=== PATIENT | female | born 1970 | race American Indian/Alaskan Native ===

== ENCOUNTER 2024-07-16 10:18 | Inpatient (IN) | payer MEDICARE, MEDICAID, SELFPAY ==
[2024-07-16] VITALS (9 sets, daily range): BP systolic 98–135; BP diastolic 60–78; PULSE 67–86; RESP 16–100; TEMP 36.7–36.9; O2SAT 98–100; BMI 21.2; BMI 24.1
--- NOTE | 2024-07-16 10:49 | XR_ITS ---
Examination: CT brain head without contrast. 2-D sagittal coronal reconstructions Date and time of exam:July 16, 2024 10:50 AM INDICATIONS: Headaches confusion today, dizziness right arm tremors April 26, 2024 CTDI: vol (mGy):47.4 DLP: (mGycm):977 Technique: Multiple CT axial sections of the brain have been obtained, 5 mm slice thickness. Contrast has not been administered. 2-D sagittal, coronal reconstructions have been obtained Low dose protocols were performed. One or more of the following dose reduction techniques were used; automated exposure control, adjustment of the mA and/or KV according to patient size, use of iterative reconstruction technique. Findings: No significant ventricular enlargement. Intra-axial or extra-axial hemorrhage density is not seen. No mass effect or midline shift Basal cisterns are not remarkable. Fourth ventricle is midline. Cranial vault intact. Impression: Negative for acute hemorrhage, mass effect or midline shift As clinically warranted, brain MRI follow-up would best assess for acute ischemic change
--- NOTE | 2024-07-16 10:49 | PD.EDRME ---
Rapid Medical Screening Exam RME Arrival date/time: 07/16/24 10:18 53-year-old female presents emergency department today complaints of generalized weakness and confusion Currently patient is GCS of 15 answers all questions appropriately Chief Complaint: Nausea/Vomiting/Diarrhea
--- NOTE | 2024-07-16 10:55 | EKG_ITS ---
[facility] Test Date: 2024-07-16 Pat Name: ALONDRA ORNELAS Department: Room: - Gender: [facility] Consultant: : 1970 Requested By: Jono Montalvo (ABISAI) Order Number: [id number] Reading MD: Jono Montalvo ([employer]) Measurements Intervals [place] Rate: 100 P: 23 CA: 160 QRS: -31 QRSD: 89 T: 46 QT: 360 QTc: 465 Interpretive Statements SINUS TACHYCARDIA WITH OCCASIONAL VENTRICULAR PREMATURE COMPLEXES MARKED LEFT AXIS DEVIATION [QRS AXIS < -30] PATTERN CONSISTENT WITH PULMONARY DISEASE Compared to ECG 04/26/2024 15:39:35 Ventricular premature complex(es) now present Sinus rhythm no longer present Myocardial infarct finding no longer present /store/S0/[id number]/[id number].pdf
[2024-07-16 11:31] LABS: Base Excess, Venous -6 (-3-3); O2 Saturation, Venous 52 % (96-97); PCO2, Venous 38 mmHg (36-56); PO2, Venous 29 mmHg (15-58); pH, Venous 7.33 (7.33-7.66)
[2024-07-16 11:33] LABS: Lactate (Lactic Acid) 2.5 mMol/L (0.4-2.0)
[2024-07-16 11:37] LABS: Basophils # (Auto) 0.1 Thou/mm3 (0.0-0.2); Basophils % (Auto) 1 % (0-2.5); Eosinophils % (Auto) 0 % (0-10); Hematocrit 40.4 % (36.0-46.0); Hemoglobin 13.6 g/dL (12.0-16.0); Immature Granulocytes % (Auto) 0 % (0-0); Immature Granulocytes Auto 0.04 Thou/mm3 (0.00-0.00); Lymphocytes # (Auto) 1.9 Thou/mm3 (1.0-4.8); Lymphocytes % (Auto) 18 % (10-50); Mean Corpuscular HGB Conc 33.7 g/dl (31.0-37.0); Mean Corpuscular Hemoglobin 28.9 pg (25.0-35.0); Mean Corpuscular Volume 86 fL (80-100); Monocytes # (Auto) 0.9 Thou/mm3 (0.0-0.8); Monocytes % (Auto) 9 % (0-12); Neutrophils # (Auto) 7.8 Thou/mm3 (1.8-7.7); Neutrophils % (Auto) 73 % (37-80); Nucleated Red Blood Cell % 0 /100 WBC (0); Platelet Count 416 Thou/mm3 (140-440); RDW Standard Deviation 41.3 fL (36.4-46.3); White Blood Count 10.7 Thou/mm3 (3.6-11.0)
[2024-07-16 11:48] LABS: Beta Hydroxybutyrate 5.3 mmol/L (<0.6)
[2024-07-16 12:07] LABS: Ammonia < 10 uMol/L (11-32)
--- NOTE | 2024-07-16 12:08 | PD.EDADULT ---
ED General RME/HPI General Chief complaint: Nausea/Vomiting/Diarrhea Stated complaint: VOMITING SINCE LAST NIGHT/NOT MAKING SENCE Time Seen by Provider: 07/16/24 11:50 Arrival date/time: 07/16/24 10:18 CC: Nausea vomiting headache HPI ongoing for the past 2 days. Patient has a history of diabetes, and left BKA. Patient is awake alert mildly confused. RME / HPI RME / HPI narrative: 07/16/24 10:18 53-year-old female presents emergency department today complaints of generalized weakness and confusion Currently patient is GCS of 15 answers all questions appropriately Related Data Home Medications ?Medication ?Instructions ?Recorded ?Confirmed aspirin 81 mg chewable tablet 81 mg PO DAILY 01/01/20 06/21/20 clopidogrel 75 mg tablet (Plavix) 75 mg PO QDAY 01/01/20 06/21/20 gabapentin 600 mg tablet 900 mg PO BID 01/01/20 06/21/20 glipizide 5 mg tablet 10 mg PO BID 01/01/20 06/21/20 metformin 1,000 mg tablet 1,000 mg PO BID 01/01/20 06/21/20 alprazolam 0.5 mg tablet (Xanax) 0.5 mg PO QDAY PRN Anxiety 06/21/20 06/21/20 benazepril 20 mg tablet 20 mg PO QDAY 06/21/20 06/21/20 cyclobenzaprine 10 mg tablet 10 mg PO HS PRN Muscle Spasm 06/21/20 06/21/20 famotidine 20 mg tablet (Pepcid) 20 mg PO QDAY PRN Gastric Reflux 06/21/20 06/21/20 ferrous sulfate 325 mg (65 mg 325 mg PO DAILY 06/21/20 06/21/20 iron) tablet,delayed release hydrochlorothiazide 25 mg tablet 25 mg PO QDAY 06/21/20 06/21/20 hydrocodone 10 mg-acetaminophen 1 tab PO Q8HR PRN Pain 06/21/20 06/21/20 325 mg tablet ibuprofen 600 mg tablet 600 mg PO Q8H PRN Pain 06/21/20 06/21/20 Previous Rx's ?Medication ?Instructions ?Recorded amlodipine 5 mg tablet 5 mg PO QDAY #30 tabs 01/17/20 cyclobenzaprine 10 mg tablet 10 mg PO TID PRN muscle spasm #30 04/26/24 tabs ibuprofen 800 mg tablet 800 mg PO TID PRN pain #30 tabs 04/26/24 Allergies Allergy/AdvReac Type Severity Reaction Status Date / Time montelukast [From Singulair] Allergy Severe Swelling Verified 07/16/24 10:23 of Lip/Tongue/Throat Review of Systems Review of Systems Narrative Review of Systems: GEN: No fever, no chills, no weight loss EYES: No discharge, no visual changes, no pain HEENT: No ear pain, no congestion, no sore throat PULM: No shortness of breath, no cough, no congestion CV: No chest pain, no dyspnea on exertion, no palpitations GI: No nausea, no vomiting, no diarrhea, no pain, no constipation : No frequency, no urgency, no dysuria MUSC/SKEL: No joint pain, no back pain SKIN: No rash PSYCH: No hallucinations, no depression HEME/LYMPH: No easy bleeding or bruising tendencies NEURO: No weakness, + headache Past Medical History Past Medical History NEUROLOGIC: Positive Neurological Disorders; Negative Seizures or Head Trauma CARDIAC: Positive Cardiac Disorders, Peripheral Vascular Disease, Hypercholesterolemia and Hypertension; Negative Coronary Artery Disease or Congestive Heart Failure RESPIRATORY: Positive Bronchitis and Pneumonia; Negative Chronic Obstructive Pulmonary Disease (COPD) GASTROINTESTINAL: Positive Gastrointestinal Disorders, Gastroesophageal Reflux Disease and Obesity GENITOURINARY: Negative Genitourinary Disorders or Renal Disease REPRODUCTIVE: Positive Previous Pregnancies; Negative Endometriosis, Genital Herpes, Gonorrhea, Pelvic Inflammatory Disease, Syphilis or Uterine Prolapse MUSCULOSKELETAL: Negative Musculoskeletal Disorders ENT: Positive Cataracts; Negative Head Trauma ENDOCRINE: Positive Endocrine Disorders and Diabetes Mellitus Type 2; Negative Diabetes Mellitus Type 1 HEMATOLOGIC: Positive Blood Disorders and Anemia PSYCHO/SOCIAL: Positive Recreational Drug Use, Depression and Anxiety OTHER HISTORY: Positive Hospitalization, Falls, Blood Transfusions and Chicken Pox; Negative Autoimmune Disease, Down Syndrome, Developmental Delay, Shingles, Blood Transfusion Reaction, Anesthesia Reactions, Organ Transplant, Chemotherapy, Radiation Therapy, Hyperbaric Therapy, MRSA, VRSA, Vancomycin-Resistant Enterococci, Clostridium Difficile or Cancer Family History FAMILY HISTORY: Positive Family Psychiatric Problems, Family Cardiac Disorders, Family Gastrointestinal Problems, Family Cancer and Family Surgery; Negative Family Respiratory Disorders or Family Anesthesia Reaction Surgical History SURGICAL: Positive Angiogram, Eye Surgery, Amputation and Section; Negative Cardiac Surgery, Endocrine Surgery, Abdominal Surgery, Nephrectomy, Joint Replacement, Neurologic Surgery, Vasectomy or Organ Transplant Social History SMOKING STATUS: Never smoker SECOND HAND EXPOSURE: No (4 cig/day x 5 yrss-Quit smoking 6 months ago) SUBSTANCE USE: does not use Course Quality Measures VTE prophylaxis Orders Category Date Time Status EKG (ED ONLY) *Do not use* NOW Care 07/16/24 10:55 Completed Saline [Insert IV] NOW Care 07/16/24 12:[address] head/brain wo con Stat Exams 07/16/24 10:49 Completed EKG (ED Only) Stat Exams 07/16/24 10:55 Draft ABG [Arterial Blood Gas] Stat Lab 07/16/24 15:54 Completed Ammonia Stat Lab 07/16/24 11:24 Completed Beta Hydroxybutyrate Stat Lab 07/16/24 11:24 Completed Blood Culture (Lab) Stat Lab 07/16/24 11:24 Received CBC Stat Lab 07/16/24 11:24 Completed CMP [Comprehensive Metabolic Panel] Stat Lab 07/16/24 17:42 Completed Comprehensive Metabolic Panel Stat Lab 07/16/24 11:24 Completed Lactate (Lactic Acid) Stat Lab 07/16/24 11:24 Completed Lactic Acid, 3 HR Stat Lab 07/16/24 14:39 Completed Procalcitonin Stat Lab 07/16/24 11:24 Completed Troponin I Stat Lab 07/16/24 11:24 Completed Urinalysis Stat Lab 07/16/24 14:57 Completed Urine Culture Stat Lab 07/16/24 14:57 Received VBG [Venous Blood Gas] Stat Lab 07/16/24 11:24 Completed Insulin Regular Med 07/16/24 13:08 Discontinued 5 unit SC X1 ONE Ketorolac Inj [Toradol Inj] Med 07/16/24 15:02 Discontinued 15 mg IVP X1 ONE Sodium Chloride 0.9% 1000 ml [Ns] 1,000 ml Med 07/16/24 15:41 Active IV 250 mls/hr Sodium Chloride 0.9% 1000 ml [Ns] 1,000 ml Med 07/16/24 12:07 Discontinued IV 999 mls/hr Sodium Chloride 0.9% 1000 ml [Ns] 1,000 ml Med 07/16/24 12:07 Discontinued IV 999 mls/hr Vital Signs Vital signs: Vital Signs Temperature 98.5 F 07/16/24 10:52 Pulse Rate 83 07/16/24 10:52 Respiratory Rate 16 07/16/24 10:52 Blood Pressure 102/69 07/16/24 10:52 Pulse Oximetry (%) 98 07/16/24 10:52 Oxygen Delivery Method Room Air 07/16/24 10:52 [facility] Patient data External records reviewed:: [facility] previous records Clinical information provided by:: patient Social determinants that could affect healthcare access:: none Patient has the following chronic illnesses:: Diabetes, left BKA How is presenting disease/condition affected by chronic disease/condition?: exacerbated by Evaluation data The following diagnostics were reviewed and interpreted by me:: lab results, radiology exam(s) and EKG tracing(s) Lab and/or radiology exams considered but not ordered:: CBC shows no leukocytosis no anemia no thrombocytopenia VBG shows a pH of 7.33 pCO2 38 pO2 of 29 base deficit of 6. CMP shows sodium 132 potassium of 4.6 chloride of 92 CO2 of 19.6 gap of 20 BUN of 38 creatinine of 2.0 glucose of 451 Lactic acid of 2.5 No transaminitis or T. bili elevation Ammonia is less than 10 Beta hydroxybutyrate is 5.3 Procalcitonin 0.67. Repeat ABG shows a pH of 7.48 gap is closed. CMP shows a corrected gap, BUN and creatinine have improved. Patient will be admitted to the hospital telemetry there is no need for ICU management. Interpretation Summary: Patient still complaining of a mild headache discussed the patient with resident who agrees patient needs to be admitted for observation for hyperglycemia and dehydration. Medications Medications considered but not ordered:: None Medication administrations:: Medication Administration History Sodium Chloride (Ns) 1,000 mls @ 250 mls/hr IV .Q4H MAKEDA Stop: 08/15/24 15:40 Last Admin: 07/16/24 16:52 Dose: 250 mls/hr Documented By: DENNYS Discontinued Medications Sodium Chloride (Ns) 1,000 mls @ 999 mls/hr IV .Q1H1M ONE Stop: 07/16/24 13:07 Last Infusion: 07/16/24 15:00 Dose: Infused Documented By: Admin: 07/16/24 13:50 Dose: 999 mls/hr Documented By: DENNYS Sodium Chloride (Ns) 1,000 mls @ 999 mls/hr IV .Q1H1M ONE Stop: 07/16/24 13:07 Last Infusion: 07/16/24 15:00 Dose: Infused Documented By: Admin: 07/16/24 14:05 Dose: 999 mls/hr Documented By: DENNYS Insulin Human Regular (Insulin Hum Regular 1 Unit/0.01 Ml (Per Unit)) 5 unit SC X1 ONE Stop: 07/16/24 13:09 Last Admin: 07/16/24 13:48 Dose: 5 unit Documented By: DENNYS Co-signed By: NEELAM Ketorolac Tromethamine (Ketorolac Inj 30 Mg/Ml Vial) 15 mg IVP X1 ONE Stop: 07/16/24 15:03 Last Admin: 07/16/24 15:41 Dose: 15 mg Documented By: NEELAM None Consultations Consultation(s) initiated? (list below): No Diagnosis Differential Diagnosis ED Complaint MDM: DKA, hyperglycemia, dehydration Most likely diagnosis given after review of the tests above:: Hyperglycemia secondary to poor diabetes management dehydration Admission Indicated Admission indicated?: indicated Explain why admission is indicated or not indicated:: Requires further medical management Admission Request Was there a request for admission?: No Disposition Plan Disposition Plan: Admit Medical Decision Making Differential Diagnosis Differential Diagnosis: DKA, hyperglycemia, dehydration Lab Data 07/16/24 11:24 07/16/24 17:42 Labs: Lab Results 07/16/24 07/16/24 07/16/24 Range/Units 11:24 14:39 14:57 WBC 10.7 (3.6-11.0) Thou/mm3 RBC 4.70 (4.00-5.20) Miln/mm3 Hgb 13.6 (12.0-16.0) g/dL Hct 40.4 (36.0-46.0) % MCV 86 (80-100) fL MCH 28.9 (25.0-35.0) pg MCHC 33.7 (31.0-37.0) g/dl RDW Std Deviation 41.3 (36.4-46.3) fL Plt Count 416 (140-440) Thou/mm3 Neut % (Auto) 73 (37-80) % Lymph % (Auto) 18 (10-50) % [place] % (Auto) 9 (0-12) % Eos % (Auto) 0 (0-10) % Baso % (Auto) 1 (0-2.5) % Neut # (Auto) 7.8 H (1.8-7.7) Thou/mm3 Lymph # (Auto) 1.9 (1.0-4.8) Thou/mm3 [place] # (Auto) 0.9 H (0.0-0.8) Thou/mm3 Eos # (Auto) 0.0 (0.0-0.5) Thou/mm3 Baso # (Auto) 0.1 (0.0-0.2) Thou/mm3 Immature Gran # (Auto) 0.04 H (0.00-0.00) Thou/mm3 Absolute Nucleated RBC 0.00 (0.00-0.00) Thou/mm3 Immature Gran % 0 (0-0) % Nucleated RBC % 0 (0) /100 WBC Puncture Site ABG pH (7.35-7.45) ABG pCO2 (32.0-48.0) mmHg ABG pO2 (83-108) mmHg ABG HCO3 (20-26) mEq/L ABG O2 Saturation (91-98) % ABG Base Excess (-3-3) VBG pH 7.33 (7.33-7.66) VBG pCO2 38 (36-56) mmHg VBG pO2 29 (15-58) mmHg VBG O2 Sat (Destiny) 52 L (96-97) % VBG Base Excess -6 L (-3-3) FiO2 % Sodium 132 L (136-145) mMol/L Potassium 4.6 (3.4-5.1) mMol/L Chloride 92 L (98-107) mMol/L Carbon Dioxide 19.6 L (20.0-31.0) mMol/L Anion Gap 20 H (7-16) BUN 38 H (9-23) mg/dL Creatinine 2.0 H (0.6-1.3) mg/dL Estim Creat Clear Calc 31.9 L (>60) mL/min eGFR 29 L (60 - ) See Note BUN/Creatinine Ratio 19 (12-20) Ratio Glucose 451 H* (74-106) mg/dL Calculated Osmolality 293 (275-295) Lactic Acid 2.5 H 1.7 (0.4-2.0) mMol/L Calcium 10.3 (8.3-10.6) mg/dL Corrected Calcium 10.3 H (8.5-10.1) mg/dL Total Bilirubin 0.6 (0.3-1.2) mg/dL AST 24 (0-34) U/L ALT 26 (10-49) U/L Alkaline Phosphatase 61 (46-116) U/L Ammonia < 10 L (11-32) uMol/L Troponin I 0.022 (0.0-0.045) ng/mL Total Protein 7.7 (5.7-8.2) gm/dL Albumin 4.8 (3.5-5.0) gm/dL Globulin 2.9 (2.3-3.5) gm/dL Albumin/Globulin Ratio 1.7 (1.2-2.2) Beta-Hydroxybutyrate/Acetoacetate 5.3 H (<0.6) mmol/L Procalcitonin 0.67 H (0.0-0.49) ng/ml Ur Collection Type Clean Catch Urine Color Lt-Yellow (Lt Yel-Yel) Urine Clarity Clear (Clear/Hazy) Urine pH 5.5 (5.0-7.0) Ur Specific [place] 1.027 (1.001-1.035) Urine Protein Trace (Neg - Trace) Urine Glucose (UA) 4+ A (Negative) Urine Ketones 2+ A (Negative) Urine Blood Negative (Negative) Urine Nitrite Negative (Negative) Urine Bilirubin Negative (Negative) Urine Urobilinogen (Auto) Negative (0.0-1.0) mg/dL Ur Leukocyte Esterase Negative (Negative) Urine RBC 5 H (0-3) /hpf Urine WBC 2 (0-5) /hpf Ur Squamous Epith Cells 7 H (0-5) /hpf Urine Bacteria Rare (None) 07/16/24 07/16/24 Range/Units 15:54 17:42 WBC (3.6-11.0) Thou/mm3 RBC (4.00-5.20) Miln/mm3 Hgb (12.0-16.0) g/dL Hct (36.0-46.0) % MCV (80-100) fL MCH (25.0-35.0) pg MCHC (31.0-37.0) g/dl RDW Std Deviation (36.4-46.3) fL Plt Count (140-440) Thou/mm3 Neut % (Auto) (37-80) % Lymph % (Auto) (10-50) % [place] % (Auto) (0-12) % Eos % (Auto) (0-10) % Baso % (Auto) (0-2.5) % Neut # (Auto) (1.8-7.7) Thou/mm3 Lymph # (Auto) (1.0-4.8) Thou/mm3 [place] # (Auto) (0.0-0.8) Thou/mm3 Eos # (Auto) (0.0-0.5) Thou/mm3 Baso # (Auto) (0.0-0.2) Thou/mm3 Immature Gran # (Auto) (0.00-0.00) Thou/mm3 Absolute Nucleated RBC (0.00-0.00) Thou/mm3 Immature Gran % (0-0) % Nucleated RBC % (0) /100 WBC Puncture Site Right Brachial ABG pH 7.46 H (7.35-7.45) ABG pCO2 31 L (32.0-48.0) mmHg ABG pO2 77 L (83-108) mmHg ABG HCO3 22 (20-26) mEq/L ABG O2 Saturation 97 (91-98) % ABG Base Excess -1 (-3-3) VBG pH (7.33-7.66) VBG pCO2 (36-56) mmHg VBG pO2 (15-58) mmHg VBG O2 Sat (Destiny) (96-97) % VBG Base Excess (-3-3) FiO2 100 % Sodium 138 (136-145) mMol/L Potassium 3.8 D (3.4-5.1) mMol/L Chloride 101 (98-107) mMol/L Carbon Dioxide 25.3 (20.0-31.0) mMol/L Anion Gap 12 (7-16) BUN 31 H (9-23) mg/dL Creatinine 1.6 H (0.6-1.3) mg/dL Estim Creat Clear Calc 39.8 L (>60) mL/min eGFR 38 L (60 - ) See Note BUN/Creatinine Ratio 19 (12-20) Ratio Glucose 217 H D (74-106) mg/dL Calculated Osmolality 289 (275-295) Lactic Acid (0.4-2.0) mMol/L Calcium 9.2 (8.3-10.6) mg/dL Corrected Calcium 9.3 (8.5-10.1) mg/dL Total Bilirubin 0.6 (0.3-1.2) mg/dL AST 17 (0-34) U/L ALT 17 (10-49) U/L Alkaline Phosphatase 48 D (46-116) U/L Ammonia (11-32) uMol/L Troponin I (0.0-0.045) ng/mL Total Protein 6.7 (5.7-8.2) gm/dL Albumin 3.9 D (3.5-5.0) gm/dL Globulin 2.8 (2.3-3.5) gm/dL Albumin/Globulin Ratio 1.4 (1.2-2.2) Beta-Hydroxybutyrate/Acetoacetate (<0.6) mmol/L Procalcitonin (0.0-0.49) ng/ml Ur Collection Type Urine Color (Lt Yel-Yel) Urine Clarity (Clear/Hazy) Urine pH (5.0-7.0) Ur Specific [place] (1.001-1.035) Urine Protein (Neg - Trace) Urine Glucose (UA) (Negative) Urine Ketones (Negative) Urine Blood (Negative) Urine Nitrite (Negative) Urine Bilirubin (Negative) Urine Urobilinogen (Auto) (0.0-1.0) mg/dL Ur Leukocyte Esterase (Negative) Urine RBC (0-3) /hpf Urine WBC (0-5) /hpf Ur Squamous Epith Cells (0-5) /hpf Urine Bacteria (None) Discharge Plan Plan Patient Disposition: Other Care w/in Hosp (SDC/[facility]FI) Prescriptions/Referrals Prescriptions/Med Rec: No Action benazepril 20 mg Tablet 20 mg PO QDAY hydrochlorothiazide 25 mg Tablet 25 mg PO QDAY ferrous sulfate 325 mg (65 mg iron) tablet,delayed release (DR/EC) 325 mg PO DAILY famotidine [Pepcid] 20 mg Tablet 20 mg PO QDAY PRN (Reason: Gastric Reflux) alprazolam [Xanax] 0.5 mg Tablet 0.5 mg PO QDAY PRN (Reason: Anxiety) hydrocodone-acetaminophen 10-325 mg Tablet 1 tab PO Q8HR PRN (Reason: Pain) ibuprofen 600 mg Tablet 600 mg PO Q8H PRN (Reason: Pain) cyclobenzaprine 10 mg Tablet 10 mg PO HS PRN (Reason: Muscle Spasm) gabapentin 600 mg Tablet 900 mg PO BID clopidogrel [Plavix] 75 mg Tablet 75 mg PO QDAY metformin 1,000 mg Tablet 1,000 mg PO BID aspirin 81 mg Tablet,Chewable 81 mg PO DAILY glipizide 5 mg Tablet 10 mg PO BID amlodipine 5 mg Tablet 5 mg PO QDAY Qty: 30 0RF cyclobenzaprine 10 mg tablet 10 mg PO TID PRN (Reason: muscle spasm) Qty: 30 0RF ibuprofen 800 mg tablet 800 mg PO TID PRN (Reason: pain) Qty: 30 0RF Referrals: Chino Baig MD [Primary Care Provider] - In 1 week Problem List Clinical Impression: Nausea & vomiting, Dehydration, Hyperglycemia Patient/Caregiver Discharge Instructions Print Language: Cuban Stand Alone Forms: Mavis Award Info., Patient Portal Info Letter PA/HEALTHCARE ECONOMICS CONSULTANT Supervising Physician PA/HEALTHCARE ECONOMICS CONSULTANT Supervising Physician: Alfonso Leslie ENP
[2024-07-16 12:48] LABS: Alanine Aminotransferase 26 U/L (10-49); Albumin, Serum 4.8 gm/dL (3.5-5.0); Albumin/Globulin Ratio 1.7 (1.2-2.2); Alkaline Phosphatase 61 U/L (46-116); Anion Gap 20 (7-16); Aspartate Amino Transferase 24 U/L (0-34); BUN/Creatinine Ratio 19 Ratio (12-20); Bilirubin,Total 0.6 mg/dL (0.3-1.2); Blood Urea Nitrogen 38 mg/dL (9-23); Calcium 10.3 mg/dL (8.3-10.6); Calcium (Corrected) 10.3 mg/dL (8.5-10.1); Carbon Dioxide 19.6 mMol/L (20.0-31.0); Chloride 92 mMol/L (98-107); Estimated Creatinine Clearance 31.9 mL/min (>60); Globulin 2.9 gm/dL (2.3-3.5); Osmolality,Calculated 293 (275-295); Potassium 4.6 mMol/L (3.4-5.1); Procalcitonin 0.67 ng/ml (0.0-0.49); Sodium 132 mMol/L (136-145); Total Protein 7.7 gm/dL (5.7-8.2); Troponin I 0.022 ng/mL (0.0-0.045); eGFR 29 See Note
[2024-07-16 12:50] LABS: Glucose 451 mg/dL (74-106)
[2024-07-16] MEDS: INSULIN HUM REGULAR 1 UNIT/0.01 ML (PER UNIT) 5 UNIT SC (13:48)
[2024-07-16] MEDS: SODIUM CHLORIDE 0.9% 1000 ML 1,000 ML 999 ML IV ×2 (13:50→14:05)
[2024-07-16 14:30] LABS: Reflex Lactate? Y
[2024-07-16 14:58] LABS: Lactic Acid, 3 HR 1.7 mMol/L (0.4-2.0)
[2024-07-16 15:12] LABS: Collection Type, Urine Clean Catch
[2024-07-16 15:35] LABS: Bacteria,Urine Rare; Bilirubin,Urine Negative (Negative); Blood,Urine Negative (Negative); Clarity,Urine Clear (Clear/Hazy); Color,Urine Lt-Yellow (Lt Yel-Yel); Glucose, Urine 4+ (Negative); Ketones,Urine 2+ (Negative); Leukocyte Esterase,Urine Negative (Negative); Nitrite,Urine Negative (Negative); PH,Urine 5.5 (5.0-7.0); Protein,Urine Trace (Neg - Trace); RBC,Urine 5 /hpf (0-3); Specific Gravity,Urine 1.027 (1.001-1.035); Squamous Epithelial Cell,Urine 7 /hpf (0-5); Urobilinogen,Urine Negative mg/dL (0.0-1.0); WBC,Urine 2 /hpf (0-5)
[2024-07-16] MEDS: KETOROLAC INJ 30 MG/ML VIAL 15 MG IVP (15:41)
--- NOTE | 2024-07-16 15:59 | PC.NURSE ---
Daughter Stacie Vernon [phone] for updates
[2024-07-16 16:02] LABS: Base Excess -1 (-3-3); HCO3 22 mEq/L (20-26); Inspired Oxygen, FIO2 100 %; O2 Saturation 97 % (91-98); PCO2 31 mmHg (32.0-48.0); PO2 77 mmHg (83-108); pH, Arterial 7.46 (7.35-7.45)
[2024-07-16 16:17] LABS: Allen Test Not Performed; Puncture Site Right Brachial
[2024-07-16] MEDS: SODIUM CHLORIDE 0.9% 1000 ML 1,000 ML 250 ML IV ×2 (16:52→21:27)
--- NOTE | 2024-07-16 17:18 | PC.NURSE ---
Dr Mendoza at bedside evaluating patient for admission.
[2024-07-16 18:40] LABS: Alanine Aminotransferase 17 U/L (10-49); Albumin, Serum 3.9 gm/dL (3.5-5.0); Albumin/Globulin Ratio 1.4 (1.2-2.2); Alkaline Phosphatase 48 U/L (46-116); Anion Gap 12 (7-16); Aspartate Amino Transferase 17 U/L (0-34); BUN/Creatinine Ratio 19 Ratio (12-20); Bilirubin,Total 0.6 mg/dL (0.3-1.2); Blood Urea Nitrogen 31 mg/dL (9-23); Calcium 9.2 mg/dL (8.3-10.6); Calcium (Corrected) 9.3 mg/dL (8.5-10.1); Carbon Dioxide 25.3 mMol/L (20.0-31.0); Chloride 101 mMol/L (98-107); Creatinine (Component) 1.6 mg/dL (0.6-1.3); Estimated Creatinine Clearance 39.8 mL/min (>60); Globulin 2.8 gm/dL (2.3-3.5); Glucose 217 mg/dL (74-106); Osmolality,Calculated 289 (275-295); Potassium 3.8 mMol/L (3.4-5.1); Sodium 138 mMol/L (136-145); Total Protein 6.7 gm/dL (5.7-8.2); eGFR 38 See Note
--- NOTE | 2024-07-16 19:35 | PD.RESEVENT ---
Documentation for date of: 07/16/24 Event Note Event Note: Patient is a 52-year-old female with a past medical history of type 2 diabetes mellitus, hypertension, CKD, status post BKA, came into the ER complaining of Nausea vomiting and headache for the past 2 days, also reported confusion last night, in the ER patient was found to have elevated blood sugars, anion gap and low bicarb, urine ketones were positive, patient was given IV insulin, but ABG and VBG showed normal pH. Head CT was done which negative for acute hemorrhage or mass effect. EKG was sinus rhythm, ? Advised continuing IV fluids and insulin, reach out to ICU as patient may need insulin drip for management of DKA. ? Repeat CMP pending. We will sign out the patient to night team for admission if anion gap closed and patient can be managed on the floors, if patient continues to have persistent anion gap metabolic acidosis, patient may require IV insulin drip. Plan of care discussed with my attending Dr. Jyothi Orozco PGY2
[2024-07-16 20:57] LABS: Anion Gap 13 (7-16); BUN/Creatinine Ratio 20 Ratio (12-20); Blood Urea Nitrogen 30 mg/dL (9-23); Calcium 9.3 mg/dL (8.3-10.6); Carbon Dioxide 23.5 mMol/L (20.0-31.0); Chloride 102 mMol/L (98-107); Creatinine (Component) 1.5 mg/dL (0.6-1.3); Estimated Creatinine Clearance 42.5 mL/min (>60); Glucose 213 mg/dL (74-106); Osmolality,Calculated 287 (275-295); Potassium 3.5 mMol/L (3.4-5.1); Sodium 138 mMol/L (136-145); eGFR 41 See Note
--- NOTE | 2024-07-16 21:41 | ESHP_ITS ---
Documentation for date of: 07/16/24 HPI History of Present Illness Chief complaint: Intractable Vomiting, Altered Mental Status History of present illness: HPI: Patient is a 53-year-old female with a past medical history significant of COPD, PAD s/p left BKA [2020], hyperlipidemia, CKD stage IIIb secondary to insulin- dependent diabetes mellitus type 2 and essential hypertension presenting today with a chief complaint of intractable vomiting and altered mental status. Patient follows up with board certified orthodontist Dr. Stearns and petroleum terminal plant operator Dr. Bee. According to patient her vomiting started 2 days ago. She stated that it was too much episodes to count, at least 10-15/day. Only food contents/water, denied any hematemesis, coffee-ground emesis, bile emesis, abdominal pain, diarrhea, fever. Patient also denied any recent change in her diet or eating any street food recently. Of note her last episode of vomiting was around 9 AM today and since then she has tolerated approximately 250 cc of water without any nausea, abdominal pain or further episodes of vomiting. Patient's daughter at bedside also stated that as the vomiting progressed patient became increasingly confused. She ask her daughter for things and then forget what she asked. She is usually controlled on oral medication for her diabetes but was instructed by her PCP to take a dose of insulin at night as needed if her blood sugar is high. During this time patient was unable to locate her home glucometer and did not take any SC insulin for the past 2 days. Today her daughter called [place] dispatch and they sent the fire department EMT to her home. Upon arrival his blood glucose read as HI and she was instructed to present to the emergency department. Patient has a chronic cough due to her COPD and sometimes has episodes of posttussive vomiting. However this presentation was far worse than her usual posttussive episodes. Of note patient said that around March 2024 she had a nuclear stress test done at Dr. Bee's office. Patient reported that the findings were negative for any heart disease. ED course: BP 102/69, pulse 83, RR 16, temp 98.5 F, SpO2 98% on room air. Labs significant for Hb 13.6, HCT 40.4, NA 132, CL 92, CO2 19.6, BUN 38, CR 2, glucose 451, lactic acid 2.5, corrected Ca 10.3, beta hydroxybutyrate 5.3. ABG, pH 7.46, pCO2 31, bicarb 22. Urinalysis significant for 4+ glucose and 2+ ketones. EKG significant for sinus tachycardia, rate 100, occasional PVCs. No acute ST changes. Head CT was negative for acute hemorrhage, mass effect or midline shift. In the ED patient received insulin HR 5 units SC x 1, normal saline 2 L IV fluid bolus and ketorolac 15 Mg IV x 1. Patient will be admitted for treatment and management of starvation ketosis secondary to uncontrolled diabetes. Review of Systems Review of Systems Narrative Review of Systems: GENERAL: Denies fever/chills or diaphoresis. HEENT: Denies headaches or visual changes. Denies discharge. Neuro: Denies unusual weakness or difficulty speaking. CARDIO: Denies chest pain or palpitations. PULM: Denies SOB, couging or wheezing. GI: As above. URO: Denies buring/itching/pain/urinary changes. MSK/EXT/SKIN: Denies joint/skeletal/muscle pain, issues/changes in upper or lower extremities, itchiness, or superficial pain. PSYCH: Cooperative, pleasant mood & affect. The rest of the review of systems is otherwise negative. Past Medical History Past Medical History Comments PMH COMMENT: Past medical history: ? COPD ? PAD s/p left BKA [2020] ? Insulin-dependent diabetes mellitus type 2 ?Diabetic neuropathy ? Essential hypertension ? Hyperlipidemia ? CKD stage IIIb Medication list: ? Metformin 1 g p.o. twice daily ? Farxiga 5 Mg p.o. daily ? Ozempic 2 Mg SC weekly ? Cyclobenzaprine 10 Mg p.o. 3 times daily as needed ? Gabapentin 300 Mg p.o. twice daily as needed ? HCTZ 25 Mg p.o. daily ? Sertraline 100 Mg p.o. daily ?Trelegy inhaler 1 puff p.o. daily ? Albuterol inhaler as needed ? Plavix 75 Mg p.o. daily ? Simvastatin 80 Mg p.o. at bedtime Past surgical history: ? LSCS x 3 ? Left BKA [2019] at [facility] by Dr. 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 Education Level: Graduated high school Marital Status: . Has 3 kids Tobacco use: Quit smoking 5 years ago. Previously approximately [id number] smoking history. ETHO use: Quit 5 years ago. Previously would drink about 6 beers per week. Illicit drug use: Denies Social History Note: Patient lives with her daughter. At baseline she uses a wheelchair and is able to carry out all ADLs independently. Family History: Strong family history of cardiac disease Mother?WI at 72 Father?WI at 37 Sister?WI at 38 Brother?WI at 27 Exam Vital Signs Temp Pulse Resp BP Pulse Ox O2 Del Method 98.1 F 77 18 123/71 100 Room Air 07/16/24 19:34 07/16/24 19:34 07/16/24 19:34 07/16/24 19:34 07/16/24 19:34 07/16/24 19:34 Narrative Exam Constitutional Alert, oriented x 3 and comfortable. elderly female HEENT Vision grossly intact. Patent nares. Trachea midline Respiratory Chest normal on inspection and decreased air entry at bases with atelectasis. Cardiovascular S1 and S2 audible, RRR. No murmurs carotid bruit. No gross JVD. Abdominal Soft and non tender to palpation in all quadrants. BS + Genitourinary No bladder tenderness, no flank pain. Normal to palpation Musculoskeletal Extremities tone within normal limits. No LE edema. Neurological CN II - XII grossly intact. Extremity motor and sensation grossly intact. Skin Warm, dry and intact. Left BKA noted. Psychiatric Patient has good affect, is cooperative Results: Labs 07/16/24 11:24 07/16/24 20:30 Labs: Short CBC 07/16/24 Range/Units 11:24 WBC 10.7 (3.6-11.0) Thou/mm3 Hgb 13.6 (12.0-16.0) g/dL Hct 40.4 (36.0-46.0) % Plt Count 416 (140-440) Thou/mm3 BMP 07/16/24 07/16/24 07/16/24 11:24 17:42 20:30 Sodium 132 L 138 138 Potassium 4.6 3.8 D 3.5 Chloride 92 L 101 102 Carbon Dioxide 19.6 L 25.3 23.5 BUN 38 H 31 H 30 H Creatinine 2.0 H 1.6 H 1.5 H Glucose 451 H* 217 H D 213 H Calcium 10.3 9.2 9.3 Cardiac Enzymes 07/16/24 Range/Units 11:24 Troponin I 0.022 (0.0-0.045) ng/mL Liver Function 07/16/24 07/16/24 Range/Units 11:24 17:42 Total Bilirubin 0.6 0.6 (0.3-1.2) mg/dL AST 24 17 (0-34) U/L ALT 26 17 (10-49) U/L Alkaline Phosphatase 61 48 D (46-116) U/L Albumin 4.8 3.9 D (3.5-5.0) gm/dL Urine 07/16/24 Range/Units 14:57 Urine Color Lt-Yellow (Lt Yel-Yel) Urine Clarity Clear (Clear/Hazy) Urine pH 5.5 (5.0-7.0) Ur Specific [place] 1.027 (1.001-1.035) Urine Protein Trace (Neg - Trace) Urine Glucose (UA) 4+ A (Negative) ABG Interpretation ABG results: 07/16/24 07/16/24 11:24 15:54 ABG pH 7.46 H ABG pCO2 31 L ABG pO2 77 L ABG HCO3 22 ABG O2 Saturation 97 ABG Base Excess -1 VBG pH 7.33 VBG pCO2 38 VBG pO2 29 VBG Base Excess -6 L Quality Measures Quality Measures VTE prophylaxis Medications Home Medications and Allergies Home Medications ?Medication ?Instructions ?Recorded ?Confirmed ?Type aspirin 81 mg chewable tablet 81 mg PO DAILY 01/01/20 06/21/20 History clopidogrel 75 mg tablet (Plavix) 75 mg PO QDAY 01/01/20 06/21/20 History gabapentin 600 mg tablet 900 mg PO BID 01/01/20 06/21/20 History glipizide 5 mg tablet 10 mg PO BID 01/01/20 06/21/20 History metformin 1,000 mg tablet 1,000 mg PO BID 01/01/20 06/21/20 History alprazolam 0.5 mg tablet (Xanax) 0.5 mg PO QDAY PRN Anxiety 06/21/20 06/21/20 History benazepril 20 mg tablet 20 mg PO QDAY 06/21/20 06/21/20 History cyclobenzaprine 10 mg tablet 10 mg PO HS PRN Muscle Spasm 06/21/20 06/21/20 History famotidine 20 mg tablet (Pepcid) 20 mg PO QDAY PRN Gastric Reflux 06/21/20 06/21/20 History ferrous sulfate 325 mg (65 mg 325 mg PO DAILY 06/21/20 06/21/20 History iron) tablet,delayed release hydrochlorothiazide 25 mg tablet 25 mg PO QDAY 06/21/20 06/21/20 History hydrocodone 10 mg-acetaminophen 1 tab PO Q8HR PRN Pain 06/21/20 06/21/20 History 325 mg tablet ibuprofen 600 mg tablet 600 mg PO Q8H PRN Pain 06/21/20 06/21/20 History Allergies Allergy/AdvReac Type Severity Reaction Status Date / Time montelukast [From [facility]] Allergy Severe Swelling Verified 07/16/24 10:23 of Lip/Tongue/Throat Visit Medications Acetaminophen (Acetaminophen 325 Mg Tablet) 650 mg PO Q6H PRN PRN Reason: Fever >100.3 or pain Stop: 08/15/24 21:26 Hydrocodone Bitart/Acetaminophen (Hydrocodone/Apap 5/325 Tablet) 1 tab PO Q4HR PRN PRN Reason: PAIN SCALE 4-10(Mod-Sev Stop: 07/21/24 21:26 Albuterol/Ipratropium (Albuterol/Ipratropium (Duoneb) Rt Radha 3 Ml Nebu) 3 ml INH Q2HR PRN PRN Reason: SHORTNESS OF BREATH OR WHEEZE Stop: 08/15/24 21:36 Atorvastatin Calcium (Atorvastatin Calcium 20 Mg Tablet) 80 mg PO HS MAKEDA Stop: 08/15/24 21:39 Clopidogrel Bisulfate (Clopidogrel Bisulfate 75 Mg Tablet) 75 mg PO QDAY MAKEDA Stop: 08/16/24 08:59 Cyclobenzaprine HCl (Cyclobenzaprine 5 Mg Tablet) 10 mg PO BID PRN PRN Reason: MUSCLE SPASMS Stop: 08/15/24 21:36 Dextrose (Dextrose 50%-Water Inj 50 Ml Syringe) 50 ml IV Q15MIN PRN PRN Reason: BG <50 OR BG <70 & pt unresponsive Stop: 08/15/24 21:32 Enoxaparin Sodium (Enoxaparin Sod Inj 40 Mg/0.4 Ml Syringe) 40 mg SC QDAY MAKEDA Stop: 07/30/24 21:34 Gabapentin (Gabapentin 300 Mg Capsule) 300 mg PO BID PRN PRN Reason: Nerve pain Stop: 08/15/24 21:44 Glucagon (Glucagon Inj 1 Mg Vial) 1 mg IM Q15MIN PRN PRN Reason: BG <70, and no IV access Sodium Chloride (Ns) 1,000 mls @ 250 mls/hr IV .Q4H MAKEDA Stop: 08/15/24 15:40 Last Admin: 07/16/24 21:27 Dose: 250 mls/hr Lactated Ringer's (Lactated Ringers) 1,000 mls @ 250 mls/hr IV .Q4H ONE Stop: 07/17/24 01:30 Insulin Human Lispro (Insulin Lispro (Admelog) 1 Unit/0.01 Ml Unit) 0 unit SC AC MAKEDA; Protocol Stop: 08/16/24 07:29 Insulin Human Lispro (Insulin Lispro (Admelog) 1 Unit/0.01 Ml Unit) 3 unit SC TIDWM MAKEDA Stop: 08/16/24 07:59 Ondansetron HCl (Ondansetron Inj 2 Mg/Ml Inj 2 Ml) 4 mg IV Q6H PRN; Protocol PRN Reason: NAUSEA OR VOMITING Stop: 08/15/24 21:26 Pantoprazole Sodium (Pantoprazole Inj 40 Mg Vial) 40 mg IVP QDAY [facility] Stop: 08/15/24 21:34 Fluticasone/Salmeterol (Fluticasone/Salmeterol 100/50 14 Dose Inh) 1 puff INH BIDRT [facility] Stop: 08/15/24 21:29 Sertraline HCl (Sertraline Hcl 25 Mg Tablet) 100 mg PO HS [facility] Stop: 08/15/24 21:39 Discontinued Medications Sodium Chloride (Ns) 1,000 mls @ 999 mls/hr IV .Q1H1M ONE Stop: 07/16/24 13:07 Last Infusion: 07/16/24 15:00 Dose: Infused Sodium Chloride (Ns) 1,000 mls @ 999 mls/hr IV .Q1H1M ONE Stop: 07/16/24 13:07 Last Infusion: 07/16/24 15:00 Dose: Infused Insulin Glargine (Insulin Glargine (Lantus) 5 Unit/0.05 Ml (Per 5 Units)) 10 unit SC X1 ONE Stop: 07/16/24 21:36 Insulin Human Regular (Insulin Hum Regular 1 Unit/0.01 Ml (Per Unit)) 5 unit SC X1 ONE Stop: 07/16/24 13:09 Last Admin: 07/16/24 13:48 Dose: 5 unit Ketorolac Tromethamine (Ketorolac Inj 30 Mg/Ml Vial) 15 mg IVP X1 ONE Stop: 07/16/24 15:03 Last Admin: 07/16/24 15:41 Dose: 15 mg Assessment & Plan Plan Patient is a 53-year-old female with a past medical history significant of COPD, PAD s/p left BKA [2019], hyperlipidemia, CKD stage IIIb secondary to insulin- dependent diabetes mellitus type 2 and essential hypertension presenting today with a chief complaint of intractable vomiting and altered mental status. Patient will be admitted for treatment and management of starvation ketosis secondary to uncontrolled diabetes. 1. Starvation ketosis secondary to uncontrolled insulin-dependent diabetes mellitus type 2 2. Acute metabolic encephalopathy?resolved 3. Diabetic neuropathy Patient had intractable vomiting more than 10?15 episodes per day for the past 2 days. On exam patient was initially confused but no alert and oriented x 3. No abdominal pain, guarding or rebound tenderness. Initially beta hydroxybutyrate 5.3, ABG: pH 7.46, pCO2?31, bicarb?22, glucose 451. Anion gap 20 ----> 12 In the ED patient was treated with 2 L normal saline IVF bolus and insulin HR 5 units subcut after which anion gap closed and glucose improved to 217. Plan: ? Full liquid diet ? Monitor BMP - Insulin Glargine 10 U sc x 1 ? SSI to cover for any blood glucose spikes ? Lactated Ringer's IVF at 250 cc/hour ? Ondansetron 4 Mg IV Q6 hourly as needed for nausea/vomiting - Resumed home medication gabapentin 300 Mg p.o. twice daily as needed for neuropathy ? Resumed home medication cyclobenzaprine 10 Mg p.o. 3 times daily as needed for muscle spasms. ? Resumed home medication sertraline 100 Mg p.o. at bedtime 4. Essential hypertension 5. Hyperlipidemia Currently BP 98/60 Home medication HCTZ 25 Mg p.o. daily and atorvastatin 80 Mg p.o. at bedtime. Plan: ? Antihypertensives on hold for now due to hypotension ? Resumed home medication atorvastatin 80 Mg p.o. at bedtime 6. Peripheral arterial disease s/p left BKA [2019] Patient had diagnostic angiogram done [place] [address] Cuellar which showed severe stenosis left popliteal artery. Subsequently patient had left BKA Home medication Plavix 75 Mg p.o. daily Plan: - Resumed Home medication Plavix 75 Mg p.o. daily 7. COPD Patient says she was diagnosed formally 2 years ago. Home medication Trelegy inhaler 1 puff p.o. twice daily. Plan: - Fluticasone/Salmeterol inhaler 1 puff BID 8. CKD stage IIIb On admission CR 2. From chart review baseline between 1.4?2 Plan: ? Renally dose medication ? Avoid nephrotoxic agents Health maintenance: Disposition: IVF. Blood glucose control Diet: Full Liquid to graduate as tolerated Lines: pIVs GI Prophylaxis: Pantoprazole IV Thrombo Prophylaxis: Enoxaparin Code status: FULL CODE Plan of care discussed with Attending Dr. Andrew Dexter MD PGY 1 Attending Provider Attestation/Addendum I have discussed and was present for the essential components of the history, physical examination, diagnosis, and treatment plan with the resident. I agree with the patient's care as documented by the resident and amended herein by me. Stephen Morales DO. Patient seen and evaluated in the emergency department. In short, patient is a 53-year-old female with significant past medical history of type 2 diabetes, left leg BKA secondary to PAD and diabetes, PAD on Plavix, CKD, iron deficiency anemia, COPD and HTN who presented with altered mental status, nausea and vomiting for approximately 2 days prior to admission. Patient denied any episodes of diarrhea, hematemesis, abdominal pain, fever or chills or chest pain. Patient subsequently admitted for DKA, although resolved at time of admission to the telemetry floor. Of note, patient does follow with board certified orthodontist Dr. Stearns and petroleum terminal plant operator Dr. Bee. In the ED, initial vital signs were stable, the patient was afebrile. CBC unremarkable, initial ABG at approximately 1554 demonstrated a pH 7.46, pCO2 of 31, pO2 of 77. Most recent BMP demonstrated normal sodium and potassium, CO2 23.5 which had up trended from 19. BUN 30, creatinine of 1.5 which may be close to the patient's baseline, blood glucose significantly 451 however has since downtrended, initial lactic acid 2.5, down trended to 1.7, beta hydroxybutyrate 5.3 on admission, Pro-To slightly elevated at 0.67, and the anion gap was 20 which is since down trended to 13. UA negative. Initial CT head negative for any acute intracranial pathology, initial EKG significant for sinus tachycardia with a rate of 100. Patient was given fluids and 5 units of subcu insulin in the ED. At this time considering patient has improved, AG closed x 2, bicarb WNL, we will admit the patient to telemetry, patient started on basal/bolus insulin with sliding scale supplementation., the patient is hungry so we will start diet. Will restart home meds as appropriate to include Plavix and statin. Patient continues to improve, possible discharge tomorrow 07/17 home. Although this document has been carefully reviewed, there may still be some phonetic and other typographical errors. These errors are purely grammatical due to imperfections in the software program and should not be construed in any way to compromise the substance of the patient's medical care during this visit.
[2024-07-16] MEDS: ENOXAPARIN SOD INJ 40 MG/0.4 ML SYRINGE SC (21:56)
[2024-07-16] MEDS: INSULIN GLARGINE (Lantus) 5 UNIT/0.05 ML (PER 5 UNITS) 10 UNIT SC (21:57)
[2024-07-16] MEDS: ATORVASTATIN CALCIUM 20 MG TABLET 80 MG PO (21:58)
[2024-07-16] MEDS: PANTOPRAZOLE INJ 40 MG VIAL IVP (21:58)
[2024-07-16] MEDS: RINGERS LACTATED 1000 ML 1,000 ML 250 ML IV (22:00)
[2024-07-16] MEDS: SERTRALINE HCL 25 MG TABLET 100 MG PO (22:27)
[2024-07-16] MEDS: RINGERS LACTATED 1000 ML 1,000 ML 125 ML IV (23:26)
[2024-07-16] MEDS: POTASSIUM CHLORIDE 20 mEq TABCR 40 MEQ PO (23:30)
[2024-07-16] MEDS: INSULIN LISPRO (AdmeLOG) 1 UNIT/0.01 ML UNIT 6 UNIT SC (23:55)
[2024-07-17] VITALS (9 sets, daily range): BP systolic 96–121; BP diastolic 62–80; PULSE 71–90; RESP 16–98; TEMP 36.2–36.8; O2SAT 93–99; BMI 24.0
[2024-07-17] MEDS: RINGERS LACTATED 1000 ML 1,000 ML 125 ML IV (05:07)
[2024-07-17 06:15] LABS: Prothrombin Time 10.5 Seconds (9.0-12.2)
[2024-07-17 06:22] LABS: Basophils # (Auto) 0.1 Thou/mm3 (0.0-0.2); Basophils % (Auto) 1 % (0-2.5); Eosinophils # (Auto) 0.2 Thou/mm3 (0.0-0.5); Eosinophils % (Auto) 3 % (0-10); Hematocrit 34.7 % (36.0-46.0); Hemoglobin 11.6 g/dL (12.0-16.0); Immature Granulocytes % (Auto) 0 % (0-0); Immature Granulocytes Auto 0.02 Thou/mm3 (0.00-0.00); Lymphocytes # (Auto) 3.4 Thou/mm3 (1.0-4.8); Lymphocytes % (Auto) 45 % (10-50); Mean Corpuscular HGB Conc 33.4 g/dl (31.0-37.0); Mean Corpuscular Hemoglobin 29.1 pg (25.0-35.0); Mean Corpuscular Volume 87 fL (80-100); Monocytes # (Auto) 0.6 Thou/mm3 (0.0-0.8); Monocytes % (Auto) 8 % (0-12); Neutrophils # (Auto) 3.4 Thou/mm3 (1.8-7.7); Neutrophils % (Auto) 44 % (37-80); Nucleated Red Blood Cell % 0 /100 WBC (0); Platelet Count 230 Thou/mm3 (140-440); RDW Standard Deviation 41.9 fL (36.4-46.3); Red Blood Count 3.99 Miln/mm3 (4.00-5.20); White Blood Count 7.7 Thou/mm3 (3.6-11.0)
[2024-07-17 06:37] LABS: Anion Gap 11 (7-16); BUN/Creatinine Ratio 22 Ratio (12-20); Blood Urea Nitrogen 29 mg/dL (9-23); Calcium 9.1 mg/dL (8.3-10.6); Carbon Dioxide 23.8 mMol/L (20.0-31.0); Cardiac Risk Estimate 4.1 RATIO (3.7-5.6); Chloride 104 mMol/L (98-107); Cholesterol 169 mg/dL (132-200); Creatinine (Component) 1.3 mg/dL (0.6-1.3); Estimated Creatinine Clearance 49.3 mL/min (>60); Glucose 172 mg/dL (74-106); HDL Cholesterol 41 mg/dL (40-60); LDL Cholesterol,Calculated 85 mg/dL (0-130); Magnesium 1.7 mg/dL (1.6-2.6); Osmolality,Calculated 287 (275-295); Potassium 3.8 mMol/L (3.4-5.1); Sodium 139 mMol/L (136-145); Thyroid Stimulating Hormone 1.95 uIU/mL (0.55-4.78); Triglycerides 214 mg/dL (30-150); eGFR 49 See Note
[2024-07-17] MEDS: INSULIN LISPRO (AdmeLOG) 1 UNIT/0.01 ML UNIT SC ×3 (07:38→17:10)
[2024-07-17] MEDS: INSULIN LISPRO (AdmeLOG) 1 UNIT/0.01 ML UNIT 3 UNIT SC ×2 (07:38→11:45)
--- NOTE | 2024-07-17 07:55 | ESPR_ITS ---
Documentation for date of: 07/17/24 Subjective Subjective Interval history: No acute overnight events. Patient feeling well. Tolerating oral intake without nausea or vomiting. Denies fever, chills, headaches, chest pain, sob, cough, GI or urinary symptoms. Exam Vital Signs Temp Pulse Resp BP Pulse Ox O2 Del Method 97.2 F 77 18 96/80 98 Room Air 07/17/24 04:00 07/17/24 04:00 07/17/24 04:00 07/17/24 04:00 07/17/24 04:00 07/17/24 04:00 Narrative Exam GENERAL * Obese, no apparent distress, on room air HEENT * NCAT.?KATERINA. Oral mucosa is moist. Patent Nares NECK * Supple, nontender, no thyromegaly, no meningismus, no JVD, no step offs CHEST * RRR, no m/g/r * CTAB, no w/r/r. Symmetrical chest rise. No intercostal subcostal retraction * Atraumatic, nontender, no crepitus, symmetrical expansion. ABDOMEN * Soft, flat, nontender. No guarding/rebound tenderness/masses. * Bowel sounds presents EXTREMITIES * Nontender, no cyanosis, no edema * No edema/cyanosis.? * S/p left lower extremity BKA SKIN * Warm and dry, no jaundice/rashes. NEUROMUSCULAR * No lumbar or midline, no CVA, no paraspinal muscle spasm or tenderness. * Moves all 4 extremities well, with full ROM and good CSM. * GLASER x4, CN II-XII grossly intact. * No focal neurologic deficits. PSYCHIATRY * Normal mood and affect, cooperative, no SI or HI or hallucinations. Objective Labs 07/17/24 05:00 07/17/24 05:00 Labs: Laboratory Results - last 24 hr 07/16/24 07/16/24 07/16/24 11:24 14:39 14:57 WBC 10.7 RBC 4.70 Hgb 13.6 Hct 40.4 MCV 86 MCH 28.9 MCHC 33.7 RDW Std Deviation 41.3 Plt Count 416 Neut % (Auto) 73 Lymph % (Auto) 18 [place] % (Auto) 9 Eos % (Auto) 0 Baso % (Auto) 1 Neut # (Auto) 7.8 H Lymph # (Auto) 1.9 [place] # (Auto) 0.9 H Eos # (Auto) 0.0 Baso # (Auto) 0.1 Immature Gran # (Auto) 0.04 H Absolute Nucleated RBC 0.00 Immature Gran % 0 Nucleated RBC % 0 PT INR Puncture Site ABG pH ABG pCO2 ABG pO2 ABG HCO3 ABG O2 Saturation ABG Base Excess VBG pH 7.33 VBG pCO2 38 VBG pO2 29 VBG O2 Sat (Destiny) 52 L VBG Base Excess -6 L FiO2 Sodium 132 L Potassium 4.6 Chloride 92 L Carbon Dioxide 19.6 L Anion Gap 20 H BUN 38 H Creatinine 2.0 H Estim Creat Clear Calc 31.9 L eGFR 29 L BUN/Creatinine Ratio 19 Glucose 451 H* Estimated Ave Glu mg/dL Hemoglobin A1c Calculated Osmolality 293 Lactic Acid 2.5 H 1.7 Calcium 10.3 Corrected Calcium 10.3 H Magnesium Total Bilirubin 0.6 AST 24 ALT 26 Alkaline Phosphatase 61 Ammonia < 10 L Troponin I 0.022 Total Protein 7.7 Albumin 4.8 Globulin 2.9 Albumin/Globulin Ratio 1.7 Triglycerides Cholesterol LDL Cholesterol, Calc HDL Cholesterol Cholesterol/HDL Ratio Beta-Hydroxybutyrate/Acetoacetate 5.3 H Procalcitonin 0.67 H TSH Ur Collection Type Clean Catch Urine Color Lt-Yellow Urine Clarity Clear Urine pH 5.5 Ur Specific [place] 1.027 Urine Protein Trace Urine Glucose (UA) 4+ A Urine Ketones 2+ A Urine Blood Negative Urine Nitrite Negative Urine Bilirubin Negative Urine Urobilinogen (Auto) Negative Ur Leukocyte Esterase Negative Urine RBC 5 H Urine WBC 2 Ur Squamous Epith Cells 7 H Urine Bacteria Rare 07/16/24 07/16/24 07/16/24 15:54 17:42 20:30 WBC RBC Hgb Hct MCV MCH MCHC RDW Std Deviation Plt Count Neut % (Auto) Lymph % (Auto) [place] % (Auto) Eos % (Auto) Baso % (Auto) Neut # (Auto) Lymph # (Auto) [place] # (Auto) Eos # (Auto) Baso # (Auto) Immature Gran # (Auto) Absolute Nucleated RBC Immature Gran % Nucleated RBC % PT INR Puncture Site Right Brachial ABG pH 7.46 H ABG pCO2 31 L ABG pO2 77 L ABG HCO3 22 ABG O2 Saturation 97 ABG Base Excess -1 VBG pH VBG pCO2 VBG pO2 VBG O2 Sat (Destiny) VBG Base Excess FiO2 100 Sodium 138 138 Potassium 3.8 D 3.5 Chloride 101 102 Carbon Dioxide 25.3 23.5 Anion Gap 12 13 BUN 31 H 30 H Creatinine 1.6 H 1.5 H Estim Creat Clear Calc 39.8 L 42.5 L eGFR 38 L 41 L BUN/Creatinine Ratio 19 20 Glucose 217 H D [address] Glu mg/dL Hemoglobin A1c Calculated Osmolality 289 287 Lactic Acid Calcium 9.2 9.3 Corrected Calcium 9.3 Magnesium Total Bilirubin 0.6 AST 17 ALT 17 Alkaline Phosphatase 48 D Ammonia Troponin I Total Protein 6.7 Albumin 3.9 D Globulin 2.8 Albumin/Globulin Ratio 1.4 Triglycerides Cholesterol LDL Cholesterol, Calc HDL Cholesterol Cholesterol/HDL Ratio Beta-Hydroxybutyrate/Acetoacetate Procalcitonin TSH Ur Collection Type Urine Color Urine Clarity Urine pH Ur Specific [place] Urine Protein Urine Glucose (UA) Urine Ketones Urine Blood Urine Nitrite Urine Bilirubin Urine Urobilinogen (Auto) Ur Leukocyte Esterase Urine RBC Urine WBC Ur Squamous Epith Cells Urine Bacteria 07/17/24 05:00 WBC 7.7 RBC 3.99 L Hgb 11.6 L D Hct 34.7 L MCV 87 MCH 29.1 MCHC 33.4 RDW Std Deviation 41.9 Plt Count 230 D Neut % (Auto) 44 Lymph % (Auto) 45 [place] % (Auto) 8 Eos % (Auto) 3 Baso % (Auto) 1 Neut # (Auto) 3.4 Lymph # (Auto) 3.4 [place] # (Auto) 0.6 Eos # (Auto) 0.2 Baso # (Auto) 0.1 Immature Gran # (Auto) 0.02 H Absolute Nucleated RBC 0.00 Immature Gran % 0 Nucleated RBC % 0 PT 10.5 INR 1.0 Puncture Site ABG pH ABG pCO2 ABG pO2 ABG HCO3 ABG O2 Saturation ABG Base Excess VBG pH VBG pCO2 VBG pO2 VBG O2 Sat (Destiny) VBG Base Excess FiO2 Sodium 139 Potassium 3.8 Chloride 104 Carbon Dioxide 23.8 Anion Gap 11 BUN 29 H Creatinine 1.3 Estim Creat Clear Calc 49.3 L eGFR 49 L BUN/Creatinine Ratio 22 H Glucose [address] Glu mg/dL Cancelled Hemoglobin A1c Cancelled Calculated Osmolality 287 Lactic Acid Calcium 9.1 Corrected Calcium Magnesium 1.7 Total Bilirubin AST ALT Alkaline Phosphatase Ammonia Troponin I Total Protein Albumin Globulin Albumin/Globulin Ratio Triglycerides 214 H Cholesterol 169 LDL Cholesterol, Calc 85 HDL Cholesterol 41 Cholesterol/HDL Ratio 4.1 Beta-Hydroxybutyrate/Acetoacetate Procalcitonin TSH 1.95 Ur Collection Type Urine Color Urine Clarity Urine pH Ur Specific [place] Urine Protein Urine Glucose (UA) Urine Ketones Urine Blood Urine Nitrite Urine Bilirubin Urine Urobilinogen (Auto) Ur Leukocyte Esterase Urine RBC Urine WBC Ur Squamous Epith Cells Urine Bacteria ABG Interpretation ABG results: 07/16/24 07/16/24 11:24 15:54 ABG pH 7.46 H ABG pCO2 31 L ABG pO2 77 L ABG HCO3 22 ABG O2 Saturation 97 ABG Base Excess -1 VBG pH 7.33 VBG pCO2 38 VBG pO2 29 VBG Base Excess -6 L Quality Measures Quality Measures VTE prophylaxis Assessment & Plan Assessment Current Active Medications: Generic Name Dose Route Start Last Admin Trade Name Freq PRN Reason Stop Dose Admin Acetaminophen 650 mg 07/16/24 21:27 Acetaminophen 325 Mg Tablet PO 08/15/24 21:26 Q6H PRN Fever >100.3 or pain Hydrocodone Bitart/Acetaminophen 1 tab 07/16/24 21:27 Hydrocodone/Apap 5/325 Tablet PO 07/21/24 21:26 Q4HR PRN PAIN SCALE 4-10(Mod-Sev Albuterol/Ipratropium 3 ml 07/16/24 21:37 Albuterol/Ipratropium (Duoneb) Rt Radha 3 Ml Nebu INH 08/15/24 21:36 Q2HR PRN SHORTNESS OF BREATH OR WHEEZE Atorvastatin Calcium 80 mg 07/16/24 21:40 07/16/24 21:58 Atorvastatin Calcium 20 Mg Tablet PO 08/15/24 21:39 80 mg HS MAKEDA Administration Clopidogrel Bisulfate 75 mg 07/17/24 09:00 Clopidogrel Bisulfate 75 Mg Tablet PO 08/16/24 08:59 QDAY MAKEDA Cyclobenzaprine HCl 10 mg 07/16/24 21:37 Cyclobenzaprine 5 Mg Tablet PO 08/15/24 21:36 BID PRN MUSCLE SPASMS Dextrose 50 ml 07/16/24 21:33 Dextrose 50%-Water Inj 50 Ml Syringe IV 08/15/24 21:32 Q15MIN PRN BG <50 OR BG <70 & pt unresponsive Enoxaparin Sodium 40 mg 07/16/24 21:35 07/16/24 21:56 Enoxaparin Sod Inj 40 Mg/0.4 Ml Syringe SC 07/30/24 21:34 40 mg QDAY MAKEDA Administration Gabapentin 300 mg 07/16/24 21:37 Gabapentin 300 Mg Capsule PO 08/15/24 21:44 BID PRN Nerve pain Glucagon 1 mg 07/16/24 21:33 Glucagon Inj 1 Mg Vial IM Q15MIN PRN BG <70, and no IV access Insulin Glargine 10 unit 07/17/24 21:00 Insulin Glargine (Lantus) 5 Unit/0.05 Ml (Per 5 Units) SC 08/16/24 20:59 HS MAKEDA Insulin Human Lispro 0 unit 07/17/24 07:30 07/17/24 07:38 Insulin Lispro (Admelog) 1 Unit/0.01 Ml Unit SC 08/16/24 07:29 2 unit AC MAKEDA Administration Protocol Insulin Human Lispro 3 unit 07/17/24 08:00 07/17/24 07:38 Insulin Lispro (Admelog) 1 Unit/0.01 Ml Unit SC 08/16/24 07:59 3 unit TIDWM MAKEDA Administration Ondansetron HCl 4 mg 07/16/24 21:27 Ondansetron Inj 2 Mg/Ml Inj 2 Ml IV 08/15/24 21:26 Q6H PRN NAUSEA OR VOMITING Protocol Pantoprazole Sodium 20 mg 07/17/24 09:00 Pantoprazole 20 Mg Tablet PO 08/16/24 08:59 DAILY AMKEDA Fluticasone/Salmeterol 1 puff 07/16/24 21:30 07/17/24 07:15 Fluticasone/Salmeterol 100/50 14 Dose Inh INH 08/15/24 21:29 Not Given BIDRT MAKEDA Sertraline HCl 100 mg 07/16/24 21:40 07/16/24 22:27 Sertraline Hcl 25 Mg Tablet PO 08/15/24 21:39 100 mg HS MAKEDA Administration Plan In summary: 53-year-old female with PMHx of IDDM type II,COPD, PAD s/p left BKA, CKD 3B, and HLD admitted with starvation ketoacidosis. Admission GLUCOSE 451, pH was normal, anion gap 20 than 12 after fluids. Continued on IV fluids. Starvation ketosis Acute metabolic encephalopathy (resolved) Presenting with severe intractable vomiting x 2 days. Abdominal exam was benign. Had confusion on exam. Likely in setting of dehydration, resolved with fluids. Unlikely DKA. BHB 5.3, GLUCOSE 451 then 217 after units INSULIN ABG showed pH 7.46, pCO2 31, bicarb 22. Anion gap 20 then 12 after 2 L of fluids and 5 units INSULIN. Patient had intractable vomiting more than 10?15 episodes per day for the past 2 days. On exam patient was initially confused but no alert and oriented x 3. No abdominal pain, guarding or rebound tenderness. Completed about 4 L fluids in total. ? Continue INSULIN GLARGINE 15 units HS ? Continue LISPRO 5 units TID ? INSULIN sliding scale ? Accu-Cheks HTN HLD Currently normotensive. ? Continue home ATORVASTATIN 80 mg HS ? Consider restarting home HCTZ 25 mg daily as indicated Diabetic neuropathy Peripheral arterial disease S/p left BKA 2019 Per chart review, angio done 2021 showing severe stenosis of left popliteal artery, left TKA done in 2019. ? Continue home PLAVIX 75 mg daily ? Continue home GABAPENTIN 200 mg BID COPD Diagnosed 2 years ago. No signs of COPD exacerbation. ? Continue home FLUTICASONE/SALMETEROL ? Continue DuoNebs PRN Prerenal ANGELICA on CKD stage IIIb Likely in settings of dehydration. Patient CR 2.0 then 1.3 after fluids. ? Renally dose meds, avoid overdiuresis and NEPHROTOXINS ? Daily CMP Anxiety/CARLA ? Continue home SERTRALINE 100 mg HS Health maintenance Diet: CHO consistent GI prophylaxis: PROTONIX DVT prophylaxis: LOVENOX Antibiotics: Not indicated CODE STATUS: Full code Disposition: Glycemic control. Patient case was discussed with attending, Dr. Glenn ELAINE, and senior residents Dr. Miller and Dr. Kingston. Brayan Johnson, DO PGYI Senior Resident Attestation: The patient reported doing well this morning. She reported that she had lost her glucometer and after drinking a big glass of grape juice which she likes, she was altered and was brought to the ED. Her vitals were fairly stable, labs at baseline. We will continue the patient on insulin glargine 15 units at night with lispro 5 units 3 times daily with meals and SSI. Continue with maintenance iv fluid. Continue to monitor BMP. I discussed with and supervised the intern retail physician involved in the care of this patient. I personally saw and examined the patient and discussed the assessment and plan with the entire medicine team, including my attending. I agree with the assessment and plan as documented above. Ion Kingston MD PGY2 Internal Medicine Attending Provider Attestation/Addendum Patient was admitted for nausea vomiting ketosis working diagnosis of starvation ketosis. The patient is diabetic with polyneuropathy. Patient has elevated BHB. When she came she had elevated anion gap. She improved with IV fluids and insulin treatment. Continue current management. Monitor electrolytes and blood glucose.. The patient is afebrile. She has no chest pain.
[2024-07-17] MEDS: PANTOPRAZOLE 20 MG TABLET PO (08:56)
[2024-07-17] MEDS: CLOPIDOGREL BISULFATE 75 MG TABLET PO (08:57)
[2024-07-17] MEDS: ENOXAPARIN SOD INJ 40 MG/0.4 ML SYRINGE SC (08:57)
[2024-07-17 09:47] LABS: Misc Send Out* See Sep Rpt
[2024-07-17] MEDS: INSULIN LISPRO (AdmeLOG) 1 UNIT/0.01 ML UNIT 5 UNIT SC ×2 (13:00→17:10)
[2024-07-17] MEDS: MELATONIN 3 MG TABLET PO (20:30)
[2024-07-17] MEDS: SERTRALINE HCL 25 MG TABLET 100 MG PO (20:30)
[2024-07-17] MEDS: ATORVASTATIN CALCIUM 20 MG TABLET 80 MG PO (20:31)
[2024-07-17] MEDS: INSULIN GLARGINE (Lantus) 5 UNIT/0.05 ML (PER 5 UNITS) 15 UNIT SC (20:31)
[2024-07-18] VITALS (9 sets, daily range): BP systolic 99–132; BP diastolic 51–93; PULSE 64–89; RESP 16–97; TEMP 36.2–36.7; O2SAT 93–99
[2024-07-18 06:16] LABS: Basophils # (Auto) 0.1 Thou/mm3 (0.0-0.2); Basophils % (Auto) 1 % (0-2.5); Eosinophils # (Auto) 0.2 Thou/mm3 (0.0-0.5); Eosinophils % (Auto) 5 % (0-10); Hematocrit 32.3 % (36.0-46.0); Hemoglobin 10.8 g/dL (12.0-16.0); Immature Granulocytes % (Auto) 0 % (0-0); Immature Granulocytes Auto 0.01 Thou/mm3 (0.00-0.00); Lymphocytes # (Auto) 1.8 Thou/mm3 (1.0-4.8); Lymphocytes % (Auto) 37 % (10-50); Mean Corpuscular HGB Conc 33.4 g/dl (31.0-37.0); Mean Corpuscular Hemoglobin 29.3 pg (25.0-35.0); Mean Corpuscular Volume 88 fL (80-100); Monocytes # (Auto) 0.4 Thou/mm3 (0.0-0.8); Monocytes % (Auto) 9 % (0-12); Neutrophils # (Auto) 2.3 Thou/mm3 (1.8-7.7); Neutrophils % (Auto) 49 % (37-80); Nucleated Red Blood Cell % 0 /100 WBC (0); Platelet Count 237 Thou/mm3 (140-440); RDW Standard Deviation 42.6 fL (36.4-46.3); Red Blood Count 3.69 Miln/mm3 (4.00-5.20); White Blood Count 4.8 Thou/mm3 (3.6-11.0)
[2024-07-18 06:23] LABS: Prothrombin Time 10.5 Seconds (9.0-12.2)
[2024-07-18 06:43] LABS: Anion Gap 7 (7-16); BUN/Creatinine Ratio 20 Ratio (12-20); Blood Urea Nitrogen 20 mg/dL (9-23); Carbon Dioxide 26.1 mMol/L (20.0-31.0); Chloride 107 mMol/L (98-107); Estimated Creatinine Clearance 64.1 mL/min (>60); Glucose 238 mg/dL (74-106); Magnesium 1.6 mg/dL (1.6-2.6); Osmolality,Calculated 290 (275-295); Potassium 3.7 mMol/L (3.4-5.1); Sodium 140 mMol/L (136-145); eGFR > 60 See Note
[2024-07-18] MEDS: INSULIN LISPRO (AdmeLOG) 1 UNIT/0.01 ML UNIT SC ×3 (07:58→16:52)
[2024-07-18] MEDS: INSULIN LISPRO (AdmeLOG) 1 UNIT/0.01 ML UNIT 5 UNIT SC ×2 (07:58→10:57)
[2024-07-18] MEDS: ENOXAPARIN SOD INJ 40 MG/0.4 ML SYRINGE SC (09:20)
[2024-07-18] MEDS: PANTOPRAZOLE 20 MG TABLET PO (09:20)
[2024-07-18] MEDS: CLOPIDOGREL BISULFATE 75 MG TABLET PO (09:20)
--- NOTE | 2024-07-18 09:28 | ESDS_ITS ---
Planned Discharge Date 07/18/24 DS: Providers Provider Date of admission: 07/16/24 21:27 Primary care physician: Chino Baig MD Admitting Provider: Darnell Morales DO Attending Provider on Admission: Sander Elizabeth MD Consults: 07/16/24 23:44 Referral [place] Routine Comment: [facility] Referral - Knowledge Deficit Routine Comment: Positive screening for knowledge deficit needs. 07/17/24 10:44 Referral Registered Dietitian Routine Comment: Attending Provider on DC: Sander Elizabeth MD Discharging Provider: Sander Elizabeth MD DS: Diagnosis Problem List Completed Was Problem List Reviewed/Reconciled?: Yes Hospital Course Hospital Course Hospital course: This is a 53-year-old female with PMHx of IDDM type II,COPD, PAD s/p left BKA, CKD 3B, and HLD admitted with starvation ketoacidosis. Admission GLUCOSE 451, pH was normal, anion gap 20 than 12 after fluids. Patient continued on IV fluids and INSULIN management. GLUCOSE was within acceptable range at the time of discharge. Additionally, she presented with an ANGELICA with CR 2.0 which resolved with fluids. Patient was stable at the time of discharge. PATIENT INSTRUCTIONS: Please follow-up with your PCP within 1 week of discharge You have been started on insulin glargine 18 units daily at night You have also been prescribed freestyle [place] 3 sensor and reader for continuous blood sugar monitoring Continue with all medications as prescribed before, including Ozempic. Recommended to cut down on sugar/Or sugary juices Recommended to return back to emergency department if your symptoms persist or does not improve. ADMISSION DIAGNOSES: Starvation ketosis Acute metabolic encephalopathy (resolved) HTN HLD Diabetic neuropathy Peripheral arterial disease S/p left BKA 2019 COPD Prerenal ANGELICA on CKD stage IIIb Anxiety/CARLA Patient case was discussed with attending, Sander Elizabeth MD and senior residents Dr. Miller and Dr. Kingston. Brayan Johnson DO PGYI Senior Resident Attestation: I discussed with and supervised the application support intern physician involved in the care of this patient. I personally saw and examined the patient and discussed the assessment and plan with the entire medicine team, including my attending. I agree with the discharge plan as documented above. Ion Kingston MD PGY2 Internal Medicine Time Spent with Patient Time attestation: Total time spent providing and/or coordinating discharge services: Greater than 35 minutes. Exam Vital Signs Temp Pulse Resp BP Pulse Ox O2 Del Method 97.1 F 64 19 104/54 L 94 L Room Air 07/18/24 08:00 07/18/24 08:00 07/18/24 08:00 07/18/24 08:00 07/18/24 08:00 07/18/24 08:00 Narrative Exam GENERAL * Obese, no apparent distress, on room air HEENT * NCAT.?KATERINA. Oral mucosa is moist. Patent Nares NECK * Supple, nontender, no thyromegaly, no meningismus, no JVD, no step offs CHEST * RRR, no m/g/r * CTAB, no w/r/r. Symmetrical chest rise. No intercostal subcostal retraction * Atraumatic, nontender, no crepitus, symmetrical expansion. ABDOMEN * Soft, flat, nontender. No guarding/rebound tenderness/masses. * Bowel sounds presents EXTREMITIES * Nontender, no cyanosis, no edema * No edema/cyanosis.? * S/p left lower extremity BKA SKIN * Warm and dry, no jaundice/rashes. NEUROMUSCULAR * No lumbar or midline, no CVA, no paraspinal muscle spasm or tenderness. * Moves all 4 extremities well, with full ROM and good CSM. * GLASER x4, CN II-XII grossly intact. * No focal neurologic deficits. PSYCHIATRY * Normal mood and affect, cooperative, no SI or HI or hallucinations. Discharge Plan Plan Patient Disposition: HOME (Self Care) Care Plan Goals: Please follow-up with your PCP within 1 week of discharge You have been started on insulin glargine 18 units daily at night, may decrease it by 2 units if your blood sugar is less than 120 in the morning or increase it to 2 units if your blood sugar is more than 200 in the morning. You have also been prescribed freestyle [place] 3 sensor and reader for continuous blood sugar monitoring Continue with all medications as prescribed before, including Ozempic. Recommended to cut down on sugar/Or sugary juices Recommended to return back to emergency department if your symptoms persist or does not improve. Prescriptions/Referrals Prescriptions/Med Rec: New (DME) FreeStyle [place] 3 Sensor Device See Rx Instructions .Route Qty: 2 3RF Rx Instructions: Apply every 14 days (DME) FreeStyle [place] 3 [place] Misc See Rx Instructions .Route Qty: 1 0RF Rx Instructions: As directed (DME) pen needle, diabetic [Pen Needle] 31 gauge x 1/4 needle See Rx Instructions .Route Qty: 100 3RF Rx Instructions: As directed insulin glargine [Lantus Solostar U-100 Insulin] 100 unit/mL (3 mL) insulin pen 18 unit subcut QPM Qty: 15 3RF Ozempic 1 mg/dose (4 mg/3 mL) pen injector 1 mg subcut QWEEK Qty: 3 3RF Continued hydrochlorothiazide 25 mg Tablet 25 mg PO QDAY gabapentin 600 mg Tablet 300 mg PO QHSPRN PRN (Reason: Pain) metformin 1,000 mg Tablet 1,000 mg PO BID aspirin 81 mg Tablet,Chewable 81 mg PO DAILY omeprazole 20 mg Tablet,Delayed Release (Dr/Ec) 20 mg PO QDAY PRN (Reason: Gastric Reflux) cyclobenzaprine 10 mg tablet 10 mg PO TID PRN (Reason: muscle spasm) Qty: 30 0RF Discontinued cyclobenzaprine 10 mg Tablet 10 mg PO HS PRN (Reason: Muscle Spasm) Referrals: Chino Baig MD [Primary Care Provider] - Patient/Caregiver Discharge Instructions Discharge Activity: activity as tolerated Other Discharge Activity Instructions:: Please follow-up with your Primary Care Provider within 1 week of discharge You have been started on insulin glargine 18 units daily at night, may decrease it by 2 units if your blood sugar is less than 120 in the morning or increase it to 2 units if your blood sugar is more than 200 in the morning. You have also been prescribed freestyle [place] 3 sensor and reader for continuous blood sugar monitoring Continue with all medications as prescribed before, including Ozempic. Recommended to cut down on sugar/Or sugary juices Recommended to return back to emergency department if your symptoms persist or does not improve. Education Materials: CGM, Insulin How to Use and Where to Inject, Diabetes Carbs Fats Protein Print Language: Danish Stand Alone Forms: Mavis Award Info., Patient Portal Info Letter Discharge Order Discharge Orders: Discharge (Routine); Ordered 07/19/24 Ordered By: Ion Kingston Quality Discharge Quality Measures VTE prophylaxis MD Attestestation MD Attestation Patient was instructed to manage her diabetes tightly aiming for FS < 180. Follow up with PCP as scheduled.
[2024-07-18] MEDS: FLUTICASONE/SALMETEROL 100/50 14 DOSE INH 1 PUFF INH ×2 (09:56→19:39)
--- NOTE | 2024-07-18 11:01 | XR_ITS ---
Examination: Abdomen AP single view Technique: AP portable supine abdomen, single view Exam date and time: July 18, 2024 1452 hours INDICATIONS: Constipation today. FINDINGS: Moderate to large amounts of stool in the right colon No obstruction 22 mm gallstone Mild small bowel ileus No free air IMPRESSION: Moderate to large amount stool in the right colon Cholelithiasis
[2024-07-18] MEDS: INSULIN LISPRO (AdmeLOG) 1 UNIT/0.01 ML UNIT 10 UNIT SC (14:14)
--- NOTE | 2024-07-18 15:59 | ESPR_ITS ---
Documentation for date of: 07/18/24 Subjective Subjective Interval history: No acute overnight events. Tolerating oral intake without nausea or vomiting. No new symptoms or worsening of symptoms. Denies fever, chills, headaches, chest pain, sob, cough, GI or urinary symptoms. Exam Vital Signs Temp Pulse Resp BP Pulse Ox O2 Del Method 97.1 F 70 18 104/54 L 98 Room Air 07/18/24 08:00 07/18/24 12:00 07/18/24 09:56 07/18/24 08:00 07/18/24 09:56 07/18/24 08:00 Narrative Exam GENERAL * Obese, no apparent distress, on room air HEENT * NCAT.?KATERINA. Oral mucosa is moist. Patent Nares NECK * Supple, nontender, no thyromegaly, no meningismus, no JVD, no step offs CHEST * RRR, no m/g/r * CTAB, no w/r/r. Symmetrical chest rise. No intercostal subcostal retraction * Atraumatic, nontender, no crepitus, symmetrical expansion. ABDOMEN * Soft, flat, nontender. No guarding/rebound tenderness/masses. * Bowel sounds presents EXTREMITIES * Nontender, no cyanosis, no edema * No edema/cyanosis.? * S/p left lower extremity BKA SKIN * Warm and dry, no jaundice/rashes. NEUROMUSCULAR * No lumbar or midline, no CVA, no paraspinal muscle spasm or tenderness. * Moves all 4 extremities well, with full ROM and good CSM. * GLASER x4, CN II-XII grossly intact. * No focal neurologic deficits. PSYCHIATRY * Normal mood and affect, cooperative, no SI or HI or hallucinations. Objective Labs 07/18/24 05:15 07/18/24 05:15 Labs: Laboratory Results - last 24 hr 07/18/24 05:15 WBC 4.8 RBC 3.69 L Hgb 10.8 L Hct 32.3 L MCV 88 MCH 29.3 MCHC 33.4 RDW Std Deviation 42.6 Plt Count 237 Neut % (Auto) 49 Lymph % (Auto) 37 Green % (Auto) 9 Eos % (Auto) 5 Baso % (Auto) 1 Neut # (Auto) 2.3 Lymph # (Auto) 1.8 Green # (Auto) 0.4 Eos # (Auto) 0.2 Baso # (Auto) 0.1 Immature Gran # (Auto) 0.01 H Absolute Nucleated RBC 0.00 Immature Gran % 0 Nucleated RBC % 0 PT 10.5 INR 1.0 Sodium 140 Potassium 3.7 Chloride 107 Carbon Dioxide 26.1 Anion Gap 7 BUN 20 Creatinine 1.0 Estim Creat Clear Calc 64.1 eGFR > 60 BUN/Creatinine Ratio 20 Glucose 238 H D Calculated Osmolality 290 Calcium 9.0 Magnesium 1.6 ABG Interpretation ABG results: 07/16/24 07/16/24 11:24 15:54 ABG pH 7.46 H ABG pCO2 31 L ABG pO2 77 L ABG HCO3 22 ABG O2 Saturation 97 ABG Base Excess -1 VBG pH 7.33 VBG pCO2 38 VBG pO2 29 VBG Base Excess -6 L Quality Measures Quality Measures VTE prophylaxis Assessment & Plan Assessment Current Active Medications: Generic Name Dose Route Start Last Admin Trade Name Freq PRN Reason Stop Dose Admin Acetaminophen 650 mg 07/17/24 09:45 Acetaminophen 325 Mg Tablet PO 08/15/24 21:26 Q6H PRN Fever >100.3 or pain(1-3) Hydrocodone Bitart/Acetaminophen 1 tab 07/16/24 21:27 Hydrocodone/Apap 5/325 Tablet PO 07/21/24 21:26 Q4HR PRN PAIN SCALE 4-10(Mod-Sev Albuterol/Ipratropium 3 ml 07/16/24 21:37 Albuterol/Ipratropium (Duoneb) Rt Radha 3 Ml Nebu INH 08/15/24 21:36 Q2HR PRN SHORTNESS OF BREATH OR WHEEZE Atorvastatin Calcium 80 mg 07/16/24 21:40 07/17/24 20:31 Atorvastatin Calcium 20 Mg Tablet PO 08/15/24 21:39 80 mg HS MAKEDA Administration Clopidogrel Bisulfate 75 mg 07/17/24 09:00 07/18/24 09:20 Clopidogrel Bisulfate 75 Mg Tablet PO 08/16/24 08:59 75 mg QDAY MAKEDA Administration Cyclobenzaprine HCl 10 mg 07/16/24 21:37 Cyclobenzaprine 5 Mg Tablet PO 08/15/24 21:36 BID PRN MUSCLE SPASMS Protocol Dextrose 50 ml 07/16/24 21:33 Dextrose 50%-Water Inj 50 Ml Syringe IV 08/15/24 21:32 Q15MIN PRN BG <50 OR BG <70 & pt unresponsive Enoxaparin Sodium 40 mg 07/16/24 21:35 07/18/24 09:20 Enoxaparin Sod Inj 40 Mg/0.4 Ml Syringe SC 07/30/24 21:34 40 mg QDAY MAKEDA Administration Gabapentin 300 mg 07/16/24 21:37 Gabapentin 300 Mg Capsule PO 08/15/24 21:44 BID PRN Nerve pain Protocol Glucagon 1 mg 07/16/24 21:33 Glucagon Inj 1 Mg Vial IM Q15MIN PRN BG <70, and no IV access Insulin Glargine 18 unit 07/18/24 21:00 Insulin Glargine (Lantus) 5 Unit/0.05 Ml (Per 5 Units) SC 08/17/24 20:59 HS MAKEDA Insulin Human Lispro 0 unit 07/17/24 07:30 07/18/24 12:12 Insulin Lispro (Admelog) 1 Unit/0.01 Ml Unit SC 08/16/24 07:29 6 unit AC MAKEDA Administration Protocol Insulin Human Lispro 6 unit 07/18/24 12:00 07/18/24 12:12 Insulin Lispro (Admelog) 1 Unit/0.01 Ml Unit SC 08/17/24 11:59 Not Given TIDWM MAKEDA Melatonin 3 mg 07/17/24 21:00 07/17/24 20:30 Melatonin 3 Mg Tablet PO 08/16/24 20:59 3 mg HS MAKEDA Administration Ondansetron HCl 4 mg 07/16/24 21:27 Ondansetron Inj 2 Mg/Ml Inj 2 Ml IV 08/15/24 21:26 Q6H PRN NAUSEA OR VOMITING Protocol Pantoprazole Sodium 20 mg 07/17/24 09:00 07/18/24 09:20 Pantoprazole 20 Mg Tablet PO 08/16/24 08:59 20 mg DAILY MAKEDA Administration Fluticasone/Salmeterol 1 puff 07/16/24 21:30 07/18/24 09:56 Fluticasone/Salmeterol 100/50 14 Dose Inh INH 08/15/24 21:29 1 puff BIDRT MAKEDA Administration Sertraline HCl 100 mg 07/16/24 21:40 07/17/24 20:30 Sertraline Hcl 25 Mg Tablet PO 08/15/24 21:39 100 mg HS MAKEDA Administration Plan In summary: 53-year-old female with PMHx of IDDM type II,COPD, PAD s/p left BKA, CKD 3B, and HLD admitted with starvation ketoacidosis. Admission GLUCOSE 451, pH was normal, anion gap 20 than 12 after fluids. Continued on IV fluids. Starvation ketosis Acute metabolic encephalopathy (resolved) Presenting with severe intractable vomiting x 2 days. Abdominal exam was benign. Had confusion on exam. Likely in setting of dehydration, resolved with fluids. Unlikely DKA. BHB 5.3, GLUCOSE 451, A1c 13. ABG showed pH 7.46, pCO2 31, bicarb 22. Anion gap 20 then 12 after 2 L of fluids and 5 units INSULIN. Patient had intractable vomiting more than 10?15 episodes per day for the past 2 days. On exam patient was initially confused but no alert and oriented x 3. No abdominal pain, guarding or rebound tenderness. Completed about 4 L fluids in total. GLUCOSE 262. Adjusted INSULIN regimen as below ? Continue INSULIN GLARGINE 18 units HS ? Continue LISPRO 6 units TID ? INSULIN sliding scale ? Accu-Cheks HTN HLD Currently normotensive. ? Continue home ATORVASTATIN 80 mg HS ? Consider restarting home HCTZ 25 mg daily as indicated Diabetic neuropathy Peripheral arterial disease S/p left BKA 2019 Per chart review, angio done 2021 showing severe stenosis of left popliteal artery, left TKA done in 2019. ? Continue home PLAVIX 75 mg daily ? Continue home GABAPENTIN 200 mg BID COPD Diagnosed 2 years ago. No signs of COPD exacerbation. ? Continue home FLUTICASONE/SALMETEROL ? Continue DuoNebs PRN Prerenal ANGELICA on CKD stage IIIb Likely in settings of dehydration. Patient CR 2.0 then 1.3 after fluids. ? Renally dose meds, avoid overdiuresis and NEPHROTOXINS ? Daily CMP Anxiety/CARLA ? Continue home SERTRALINE 100 mg HS Health maintenance Diet: CHO consistent GI prophylaxis: PROTONIX DVT prophylaxis: LOVENOX Antibiotics: Not indicated CODE STATUS: Full code Disposition: Glycemic control. Patient case was discussed with attending, Dr. Glenn ELAINE, and senior residents Dr. Miller and Dr. Kingston. Brayan Johnson, DO PGYI Senior Resident Attestation: The patient reported doing well this morning. Her vitals were stable and BS has been in 200's despite multiple attempt to control it to below 200. We will continue to monitor her BS and DC her with following reccs after her BS is stable:- Please follow-up with your PCP within 1 week of discharge You have been started on insulin glargine 15 units daily at night You have also been prescribed freestyle desmond 3 sensor and reader for continuous blood sugar monitoring Continue with all medications as prescribed before, including Ozempic. Recommended to cut down on sugar/Or sugary juices Recommended to return back to emergency department if your symptoms persist or does not improve. I discussed with and supervised the summer intern physician involved in the care of this patient. I personally saw and examined the patient and discussed the assessment and plan with the entire medicine team, including my attending. I agree with the assessment and plan as documented above. Ion Kingston MD PGY2 Attending Provider Attestation/Addendum 53-year-old female with uncontrolled diabetes mellitus. Patient was admitted for nausea vomiting. She has less symptoms today She is afebrile. Patient is on Lantus and Ozempic per report. She will follow with Dr. DUMONT after discharge with regards to her diabetes treatment.
[2024-07-18] MEDS: INSULIN LISPRO (AdmeLOG) 1 UNIT/0.01 ML UNIT 6 UNIT SC (16:53)
[2024-07-18] MEDS: ATORVASTATIN CALCIUM 20 MG TABLET 80 MG PO (20:52)
[2024-07-18] MEDS: SERTRALINE HCL 25 MG TABLET 100 MG PO (20:52)
[2024-07-18] MEDS: MELATONIN 3 MG TABLET PO (20:52)
[2024-07-18] MEDS: INSULIN GLARGINE (Lantus) 5 UNIT/0.05 ML (PER 5 UNITS) 18 UNIT SC (20:58)
[2024-07-19] VITALS: BP 130/71; PULSE 68; PULSE 86; RESP 22; TEMP 36.1; O2SAT 99
[2024-07-19 04:00] VITALS: BP 103/67; PULSE 75; RESP 15; TEMP 36.7; O2SAT 95
[2024-07-19 06:06] LABS: Basophils # (Auto) 0.1 Thou/mm3 (0.0-0.2); Basophils % (Auto) 1 % (0-2.5); Eosinophils # (Auto) 0.2 Thou/mm3 (0.0-0.5); Eosinophils % (Auto) 4 % (0-10); Hematocrit 34.2 % (36.0-46.0); Hemoglobin 11.3 g/dL (12.0-16.0); Immature Granulocytes % (Auto) 0 % (0-0); Immature Granulocytes Auto 0.01 Thou/mm3 (0.00-0.00); Lymphocytes # (Auto) 2.1 Thou/mm3 (1.0-4.8); Lymphocytes % (Auto) 42 % (10-50); Mean Corpuscular Hemoglobin 29.1 pg (25.0-35.0); Mean Corpuscular Volume 88 fL (80-100); Monocytes # (Auto) 0.4 Thou/mm3 (0.0-0.8); Monocytes % (Auto) 7 % (0-12); Neutrophils # (Auto) 2.3 Thou/mm3 (1.8-7.7); Neutrophils % (Auto) 45 % (37-80); Nucleated Red Blood Cell % 0 /100 WBC (0); Platelet Count 225 Thou/mm3 (140-440); RDW Standard Deviation 42.9 fL (36.4-46.3); Red Blood Count 3.88 Miln/mm3 (4.00-5.20)
[2024-07-19 06:28] LABS: Alanine Aminotransferase 18 U/L (10-49); Albumin, Serum 3.7 gm/dL (3.5-5.0); Albumin/Globulin Ratio 1.6 (1.2-2.2); Alkaline Phosphatase 51 U/L (46-116); Anion Gap 10 (7-16); Aspartate Amino Transferase 20 U/L (0-34); BUN/Creatinine Ratio 17 Ratio (12-20); Bilirubin,Total 0.3 mg/dL (0.3-1.2); Blood Urea Nitrogen 19 mg/dL (9-23); Calcium (Corrected) 9.2 mg/dL (8.5-10.1); Carbon Dioxide 24.4 mMol/L (20.0-31.0); Chloride 107 mMol/L (98-107); Creatinine (Component) 1.1 mg/dL (0.6-1.3); Estimated Creatinine Clearance 58.3 mL/min (>60); Globulin 2.3 gm/dL (2.3-3.5); Glucose 244 mg/dL (74-106); Magnesium 1.6 mg/dL (1.6-2.6); Osmolality,Calculated 291 (275-295); Potassium 3.6 mMol/L (3.4-5.1); Sodium 141 mMol/L (136-145); eGFR 59 See Note
[2024-07-19 07:05] VITALS: PULSE 73; PULSE 75; RESP 17; RESP 18; RESP 98; O2SAT 98
[2024-07-19] MEDS: FLUTICASONE/SALMETEROL 100/50 14 DOSE INH 1 PUFF INH (07:05)
[2024-07-19] MEDS: INSULIN LISPRO (AdmeLOG) 1 UNIT/0.01 ML UNIT 6 UNIT SC ×2 (07:38→11:44)
[2024-07-19] MEDS: INSULIN LISPRO (AdmeLOG) 1 UNIT/0.01 ML UNIT SC ×2 (07:38→11:43)
[2024-07-19 07:50] VITALS: BP 129/68; PULSE 80; RESP 18; TEMP 36.4; O2SAT 98
[2024-07-19 08:00] VITALS: PULSE 80
--- NOTE | 2024-07-19 08:38 | PC.CC ---
Order for CGM faxed to [facility].
[2024-07-19] MEDS: INSULIN LISPRO (AdmeLOG) 1 UNIT/0.01 ML UNIT 2 UNIT SC (08:40)
[2024-07-19] MEDS: CLOPIDOGREL BISULFATE 75 MG TABLET PO (09:08)
[2024-07-19] MEDS: PANTOPRAZOLE 20 MG TABLET PO (09:08)
[2024-07-19] MEDS: ENOXAPARIN SOD INJ 40 MG/0.4 ML SYRINGE SC (09:08)
[2024-07-19 12:00] VITALS: BP 126/65; PULSE 74; PULSE 76; RESP 18; TEMP 36.4; O2SAT 98
--- NOTE | 2024-07-19 15:43 | ESDS_ITS ---
Planned Discharge Date 07/19/24 DS: Providers Provider Date of admission: 07/16/24 21:27 Primary care physician: Chino Baig MD Admitting Provider: Darnell Morales DO Attending Provider on Admission: Sander Elizabeth MD Consults: 07/16/24 23:44 Referral Bath Routine Comment: [facility] Referral - Knowledge Deficit Routine Comment: Positive screening for knowledge deficit needs. 07/17/24 10:44 Referral Registered Dietitian Routine Comment: Attending Provider on DC: Brayan Johnson MD Discharging Provider: Brayan Johnson MD DS: Diagnosis Problem List Completed Was Problem List Reviewed/Reconciled?: Yes Hospital Course Hospital Course Hospital course: This is a 53-year-old female with PMHx of IDDM type II,COPD, PAD s/p left BKA, CKD 3B, and HLD admitted with starvation ketoacidosis. Admission GLUCOSE 451, pH was normal, anion gap 20 than 12 after fluids. Patient continued on IV fluids and INSULIN management. GLUCOSE was within acceptable range at the time of discharge. Additionally, she presented with an ANGELICA with CR 2.0 which resolved with fluids. Patient was stable at the time of discharge. PATIENT INSTRUCTIONS: Please follow-up with your Primary Care Provider within 1 week of discharge You have been started on insulin glargine 18 units daily at night, may decrease it by 2 units if your blood sugar is less than 120 in the morning or increase it to 2 units if your blood sugar is more than 200 in the morning. You have also been prescribed freestyle desmond 3 sensor and reader for continuous blood sugar monitoring Continue with all medications as prescribed before, including Ozempic. Recommended to cut down on sugar/Or sugary juices Recommended to return back to emergency department if your symptoms persist or does not improve. ADMISSION DIAGNOSES: Starvation ketosis Acute metabolic encephalopathy (resolved) HTN HLD Diabetic neuropathy Peripheral arterial disease S/p left BKA 2019 COPD Prerenal ANGELICA on CKD stage IIIb Anxiety/CARLA Patient case was discussed with attending, Daniel Carlin MD and senior residents Dr. Miller and Dr. Kingston. Brayan Johnson DO PGYI Senior Resident Attestation: I discussed with and supervised the spring internship physician involved in the care of this patient. I personally saw and examined the patient and discussed the assessment and plan with the entire medicine team, including my attending. I agree with the discharge plan as documented above. Ion Kingston MD PGY2 Internal Medicine Time Spent with Patient Time attestation: Total time spent providing and/or coordinating discharge services: Greater than 35 minutes. Exam Vital Signs Temp Pulse Resp BP Pulse Ox O2 Del Method O2 Flow Rate 97.5 F 74 18 126/65 98 Room Air 3 07/19/24 12:00 07/19/24 12:00 07/19/24 12:00 07/19/24 12:07/19/24 12:07/19/24 12:00 07/18/24 19:39 Narrative Exam GENERAL * Obese, no apparent distress, on room air HEENT * NCAT.?KATERINA. Oral mucosa is moist. Patent Nares NECK * Supple, nontender, no thyromegaly, no meningismus, no JVD, no step offs CHEST * RRR, no m/g/r * CTAB, no w/r/r. Symmetrical chest rise. No intercostal subcostal retraction * Atraumatic, nontender, no crepitus, symmetrical expansion. ABDOMEN * Soft, flat, nontender. No guarding/rebound tenderness/masses. * Bowel sounds presents EXTREMITIES * Nontender, no cyanosis, no edema * No edema/cyanosis.? * S/p left lower extremity BKA SKIN * Warm and dry, no jaundice/rashes. NEUROMUSCULAR * No lumbar or midline, no CVA, no paraspinal muscle spasm or tenderness. * Moves all 4 extremities well, with full ROM and good CSM. * GLASER x4, CN II-XII grossly intact. * No focal neurologic deficits. PSYCHIATRY * Normal mood and affect, cooperative, no SI or HI or hallucinations. Discharge Plan Plan Patient Disposition: HOME (Self Care) Care Plan Goals: Please follow-up with your PCP within 1 week of discharge You have been started on insulin glargine 18 units daily at night, may decrease it by 2 units if your blood sugar is less than 120 in the morning or increase it to 2 units if your blood sugar is more than 200 in the morning. You have also been prescribed freestyle desmond 3 sensor and reader for continuous blood sugar monitoring Continue with all medications as prescribed before, including Ozempic. Recommended to cut down on sugar/Or sugary juices Recommended to return back to emergency department if your symptoms persist or does not improve. Prescriptions/Referrals Prescriptions/Med Rec: New (DME) FreeStyle Desmond 3 Sensor Device See Rx Instructions .Route Qty: 2 3RF Rx Instructions: Apply every 14 days (DME) FreeStyle Desmond 3 Parks Misc See Rx Instructions .Route Qty: 1 0RF Rx Instructions: As directed (DME) pen needle, diabetic [Pen Needle] 31 gauge x 1/4 needle See Rx Instructions .Route Qty: 100 3RF Rx Instructions: As directed insulin glargine [Lantus Solostar U-100 Insulin] 100 unit/mL (3 mL) insulin pen 18 unit subcut QPM Qty: 15 3RF Ozempic 1 mg/dose (4 mg/3 mL) pen injector 1 mg subcut QWEEK Qty: 3 3RF Continued hydrochlorothiazide 25 mg Tablet 25 mg PO QDAY gabapentin 600 mg Tablet 300 mg PO QHSPRN PRN (Reason: Pain) metformin 1,000 mg Tablet 1,000 mg PO BID aspirin 81 mg Tablet,Chewable 81 mg PO DAILY omeprazole 20 mg Tablet,Delayed Release (Dr/Ec) 20 mg PO QDAY PRN (Reason: Gastric Reflux) cyclobenzaprine 10 mg tablet 10 mg PO TID PRN (Reason: muscle spasm) Qty: 30 0RF Discontinued cyclobenzaprine 10 mg Tablet 10 mg PO HS PRN (Reason: Muscle Spasm) Referrals: Chino Baig MD [Primary Care Provider] - Patient/Caregiver Discharge Instructions Discharge Activity: activity as tolerated Other Discharge Activity Instructions:: Please follow-up with your Primary Care Provider within 1 week of discharge You have been started on insulin glargine 18 units daily at night, may decrease it by 2 units if your blood sugar is less than 120 in the morning or increase it to 2 units if your blood sugar is more than 200 in the morning. You have also been prescribed freestyle desmond 3 sensor and reader for continuous blood sugar monitoring Continue with all medications as prescribed before, including Ozempic. Recommended to cut down on sugar/Or sugary juices Recommended to return back to emergency department if your symptoms persist or does not improve. Education Materials: CGM, Insulin How to Use and Where to Inject, Diabetes Carbs Fats Protein Print Language: Divehi Stand Alone Forms: Mavis Award Info., Patient Portal Info Letter Discharge Order Discharge Orders: Discharge (Routine); Ordered 07/19/24 Ordered By: Ion Kingston Quality Discharge Quality Measures VTE prophylaxis MD Attestestation MD Attestation Face to face evaluation was performed by me. I have personally seen and examined the patient. I discussed the assessment and plan with the entire medicine team. I reviewed available medical records, imaging studies, laboratory results. I agree with the above subjective data, objective findings, assessment and plan except as corrected by me or noted below starvation ketoacidosis Dm t2 with hyperglycemia, uncontrolled - on insulins here. Glu levels imroved to low 200s, she was 450s on arrival, increase to 18 U qh on dc, resume ozempic but 1 mg she can not tolerate 2 mg dose she says, continue metformin, keep blood glucose log and fu wit hPCP as soon as possible
== END 2024-07-19 13:15 | disposition home or self-care (01) | DRG 637 ==
LOC: SERX 18:58 → SERHOLD 21:51 → S3SX 22:48
PROVIDERS: Nurse Practitioner Primary Care; Registered Nurse General Practice; Student in an Organized Health Care Education/Training Program; Admitting Provider Student in an Organized Health Care Education/Training Program; Emergency Provider Emergency Medicine; PCP Family Medicine; Visit Provider Internal Medicine
DX: E11.10 Type 2 diabetes mellitus with ketoacidosis without coma (principal); G93.41 Metabolic encephalopathy; N17.9 Acute kidney failure, unspecified; J44.9 Chronic obstructive pulmonary disease, unspecified; Z89.512 Acquired absence of left leg below knee; I12.9 Hypertensive chronic kidney disease with stage 1 through stage 4 chronic kidney disease, or unspecified chronic kidney disease; N18.32 Chronic kidney disease, stage 3b; E78.5 Hyperlipidemia, unspecified; E11.40 Type 2 diabetes mellitus with diabetic neuropathy, unspecified; Z87.891 Personal history of nicotine dependence; E11.22 Type 2 diabetes mellitus with diabetic chronic kidney disease; Z79.4 Long term (current) use of insulin; E11.51 Type 2 diabetes mellitus with diabetic peripheral angiopathy without gangrene; E11.42 Type 2 diabetes mellitus with diabetic polyneuropathy; F41.1 Generalized anxiety disorder
CPT/HCPCS: 36415; 36600; 70450; 74018; 80048; 80053; 80061; 81001; 82010; 82140; 82803; 83036; 83605; 83735; 84100; 84145; 84443; 84484; 85025; 85610; 87040; 87086; 93005; 93225; 94640; 94664; 96361; 96365; 96366; 96367; 96372; 96375; 99285; J1650; J1815; J1885; J2470; J7030; J7120; A9270

== ENCOUNTER 2024-07-31 11:06 | Inpatient (IN) | payer MEDICARE, MEDICAID, SELFPAY ==
[2024-07-31] VITALS (14 sets, daily range): BP systolic 138–151; BP diastolic 76–108; PULSE 104–125; RESP 16–100; TEMP 36.4–36.8; O2SAT 98–100; BMI 24.2
--- NOTE | 2024-07-31 | XR_ITS ---
Examinations: MRI Brain without intravenous contrast. MRA brain without intravenous contrast. MRA carotids without intravenous contrast 3-D vascular reconstructions Date and time of exam: July 31, 2024 1927 hours INDICATIONS: Stroke alert, onset focal neurologic deficits or speech beginning 10:40 AM this morning Technique: Multiple axial and sagittal images of the brain have been obtained MRA brain carotid images without contrast obtained, including 3-D postprocessing, vascular maximum intensity projection images Findings: Sellaturcica is not enlarged. The optic chiasm and infundibular stalk are not remarkable. Prepontine and interpeduncular cisterns are not enlarged. No localized enlargement of the medulla or ezra. Fourth ventricle and cerebellar tonsils normal in position. Subacute hemorrhage is not seen. Fourth ventricle is midline. Mass in the cerebellopontine angle region is not evident. 7th and 8th nerve complexes exhibits symmetry. Globes are symmetrical with no retro-orbital mass. Increased white matter signal evident scattered punctate foci increased signal in the white matter Diffusion-weighted images demonstrate subtle 3 mm focus restricted diffusion left frontoparietal lobe diffusion image 17 Mass-effect upon the ventricular system is not identified. MRA carotid images 50-70% stenosis origin right internal carotid artery, 30-50% stenosis origin left internal carotid artery. MRA brain images no large vessel occlusions Impression: Scattered punctate foci increased signal in the white matter, demyelinating disease pattern
--- NOTE | 2024-07-31 11:11 | EKG_ITS ---
[facility] Test Date: 2024-07-31 Pat Name: ALONDRA ORNELAS Department: Room: - Gender: Female Counselor Dormitory: : [id number] Requested By: Damion Taylor Order Number: [id number] Reading MD: Damion Taylor Measurements Intervals [place] Rate: 112 P: 41 MA: 141 QRS: -6 QRSD: 86 T: 48 QT: 330 QTc: 451 Interpretive Statements SINUS TACHYCARDIA MINIMAL ST DEPRESSION [0.025+ mV ST DEPRESSION] ABNORMAL RHYTHM ECG Compared to ECG 07/16/2024 11:11:07 ST (T wave) deviation now present Ventricular premature complex(es) no longer present Left-axis deviation no longer present /store/S0/[id number].pdf
--- NOTE | 2024-07-31 11:11 | XR_ITS ---
Examination: CT brain head without contrast. 2-D sagittal coronal reconstructions Date and time of exam:07/31/2024 1116 hours Comparison July 16, 2024 INDICATIONS: Stroke alert, onset right-sided body weakness beginning 30 minutes ago CTDI: vol (mGy):48.6 DLP: (mGycm):974 Technique: Multiple CT axial sections of the brain have been obtained, 5 mm slice thickness. Contrast has not been administered. 2-D sagittal, coronal reconstructions have been obtained Low dose protocols were performed. One or more of the following dose reduction techniques were used; automated exposure control, adjustment of the mA and/or KV according to patient size, use of iterative reconstruction technique. Findings: No significant ventricular enlargement. Intra-axial or extra-axial hemorrhage density is not seen. No mass effect or midline shift Basal cisterns are not remarkable. Fourth ventricle is midline. Cranial vault intact. Impression: Negative for acute hemorrhage, mass effect or midline shift
--- NOTE | 2024-07-31 11:11 | XR_ITS ---
Examination: CTA carotids with intravenous contrast CTA brain, head with intravenous contrast. 2-D sagittal, coronal reconstructions. 3-D reconstructions. Exam date and time: July 31, 2024 1120 hours INDICATIONS: Stroke alert, onset right-sided body weakness beginning 30 minutes ago CTDI: vol (mGy) 11.1 DLP: (mGycm) 424 Technique: Multiple CTA axial brain, head carotid images post intravenous contrast injection 75 cc, [id number]. 2-D sagittal, coronal reconstructions. 3-D reconstructions, 3-D post processing including vascular maximum intensity projection images. Low dose protocols were performed. One or more of the following dose reduction techniques were used; automated exposure control, adjustment of the mA and/or KV according to patient size, use of iterative reconstruction technique. Findings: Scattered opacities in both upper lung zones Heavy calcification right carotid bifurcation with 70 % stenosis origin right internal carotid artery Heavy calcification left common carotid bifurcation with 30-50% stenosis origin left internal carotid artery Dominant left vertebral artery with no critical stenoses No cerebral large vessel arterial occlusions or thrombus IMPRESSION: 70% stenosis origin right internal carotid artery 30-50% stenosis origin left internal carotid artery No cerebral large vessel arterial occlusions or thrombus
--- NOTE | 2024-07-31 11:17 | EDNOTE_ITS ---
Neuro Symptoms Deficit-RME/HPI General Chief Complaint: Neuro Symptoms/Deficit Stated Complaint: STROKE ALERT Time Seen by Provider: 07/31/24 11:12 Arrival date/time: 07/31/24 11:06 RME / HPI RME / HPI Narrative: 53 year old female with history of COPD, PAD s/p left BKA in 2019, hypertension, diabetes, DKA, hyperlipidemia, CKD, s/p cholecystectomy performed 07/29/2024 at [facility] presents to the ED BIBA from Dr. Stearns's office for stroke-like symptoms beginning at 10:40 am today. Per medics, daughter on scene reported while at Dr. Stearns's office the patient began speaking very few words, slurring her speech, and leaning to the right side. Medics report when they arrived patient had complete weakness of the right side with right facial droop and drooling. G-FAST 3. Prehospital BS 145. Patient does take Plavix. 1215: Obtained additional history from daughter. States this is the 3rd episode of altered mental status since starting Ozempic 02/2024. States after starting medication she began having upset GI, nausea, vomiting, diarrhea. States she stopped the Ozempic in May and all of that went away. Because she had an appointment with her PCP last month she restarted the Ozempic and again began to have nausea, vomiting, and change in mental status and was brought here where she was admitted for borderline DKA. While in the hospital the dose of Ozempic was lowered and went home where she took the first dose. Again began to have nausea, vomiting, diarrhea, with transient altered mental status and went to [facility] [address] instead where they admitted her for what she described as DKA. During admission [id number] her gallbladder was contributing to symptoms and underwent cholecystectomy 2 days ago. 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 Daughter stated the patient has not taken her Ozempic since 07/21/2024 and the nausea/vmiting improved, but still had one transient episode of altered mental status. Related Data Home Medications ?Medication ?Instructions ?Recorded ?Confirmed aspirin 81 mg chewable tablet 81 mg PO DAILY 01/01/20 07/16/24 gabapentin 600 mg tablet 300 mg PO QHSPRN PRN Pain 07/16/24 metformin 1,000 mg tablet 1,000 mg PO BID 01/01/20 hydrochlorothiazide 25 mg tablet 25 mg PO QDAY 06/21/ 0 07/16/24 omeprazole 20 mg tablet,delayed 20 mg PO QDAY PRN Josie nelson Reflux 07/16/24 07/16/24 release Previous Rx's ?Medication ?Instructions ?Recorded cyclobenzaprine 10 mg tablet 10 mg PO TID PRN muscle s pasm #30 04/26/24 tabs blood-glucose meter,continuous #1 ea 07/18/24 (FreeStyle [place] 3 Blacklick) blood-glucose sensor (FreeStyle #2 ea 07/18/24 [place] 3 Sensor device) pen needle, diabetic 31 gauge x #100 ea 07/18/2406/29 (Pen Needle) insulin glargine 100 unit/mL (3 18 unit (0.18 mL) subc ut QPM #15 mL 07/19/24 mL) subcutaneous pen (Lantus Solostar U-100 Insulin) semaglutide 1 mg/dose (4 mg/3 mL) 1 mg (0.75 mL) subcu t QWEEK #3 mL 07/19/24 subcutaneous pen injector (Ozempic) Allergies Allergy/AdvReac Type Severity Reaction Status Date / Time montelukast (From Singulair) Allergy Severe Swelling Verified 07/16/24 10:23 of Lip/Tongue/Throat Review of Systems Review of Systems ROS Unobtainable: unobtainable due to mental status Past Medical History Past Medical History CARDIAC: Positive Cardiac Disorders, Peripheral Vascular Disease, Hypercholesterolemia and Hypertension RESPIRATORY: Positive Chronic Obstructive Pulmonary Disease (COPD), Bronchitis and Pneumonia GASTROINTESTINAL: Positive Obesity REPRODUCTIVE: Positive Previous Pregnancies ENT: Positive Cataracts ENDOCRINE: Positive Endocrine Disorders and Diabetes Mellitus Type 2 HEMATOLOGIC: Positive Blood Disorders and Anemia PSYCHO/SOCIAL: Positive Recreational Drug Use, Depression and Anxiety OTHER HISTORY: Positive Hospitalization, Falls, Blood Transfusions and Chicken Pox Family History FAMILY HISTORY: Positive Family Psychiatric Problems, Family Cardiac Disorders, Family Gastrointestinal Problems, Family Cancer and Family Surgery Surgical History SURGICAL: Positive Angiogram, Eye Surgery, Amputation and Section Social History SMOKING STATUS: Never smoker SECOND HAND EXPOSURE: No (4 cig/day x 5 yrss-Quit smoking 6 months ago) SUBSTANCE USE: does not use ED Exam Narrative Physical exam: On initial exam on arrival to ED at 11:04 GENERAL APPEARANCE: Awake, appears fixated, looking to the distance, not following commands HEENT: NC, AT. MMM. clear conjunctiva, oropharynx clear. NECK: Supple without lymphadenopathy. No stiffness or restricted ROM. HEART: Normal rate and regular rhythm, normal S1/S1, no m/r/g LUNGS: CTAB, moving air well. No crackles or wheezes are heard. ABDOMEN: Soft, nondistended with good bowel sounds heard. BACK: No midline C/T/L spine pain or deformity, No CVAT, no obvious deformity. EXTREMITIES: Without cyanosis, clubbing or edema. MUSCULOSKELETAL: FROM of all major joints, no chest tenderness NEUROLOGICAL: Awake, appears fixated, looking to the distance, not following commands to move extremities, upon lifting extremity she would resist and fight slightly, tonic but clnic activity, right facial droop. Skin: Warm and dry without any rash. On reexamination at 11:30 the patient is awake, very emotional and crying, moving all extremities. Course Quality Measures Suspected type of Stroke: Non Acute Last known well (date): 07/31/24 Last known well (time): 10:40 Tenecteplase given: Reason(s) TPA not given: Use of NOAC (eliquis, xarelto, or pradaxa) and Recent major surgery and/or trauma not given stroke Orders Category Date Time Status Bedside Blood Glucose NOW Care 07/31/24 11:11 Active Dimethylaniline Sulfator Operator NOW Care 07/31/24 11:11 Active Continuous Pulse Oximetry NOW Care 07/31/24 11:11 Completed EKG (ED ONLY) *Do not use* NOW Care 07/31/24 11:11 Completed In and Out Catheter NEEDED Care 07/31/24 11:11 Active Insert IV NOW Care 07/31/24 11:11 Active NIH Stroke Scale now Care 07/31/24 11:11 Active NPO NOW Care 07/31/24 11:11 Active Neuro Check Q30MIN Care 07/31/24 11:11 Active Nurse Swallow Screen x1 Care 07/31/24 11:11 Active Consult to Neurology / Tele-Neurology Routine Cons 07/31/24 11:[address] angio stroke protocol Stat Exams 07/31/24 11:[address] stroke protocol Stat Exams 07/31/24 11:11 Completed EKG (ED Only) Stat Exams 07/31/24 11:11 Draft CBC Stat Lab 07/31/24 11:10 Completed Comprehensive Metabolic Panel Stat Lab 07/31/24 11:10 Completed Drug Screen,Urine Stat Lab 07/31/24 13:01 Completed Lactate (Lactic Acid) Stat Lab 07/31/24 11:50 Results Lipase Stat Lab 07/31/24 11:10 Completed Magnesium Stat Lab 07/31/24 11:10 Completed Partial Thromboplastin Time Stat Lab 07/31/24 11:10 Completed Procalcitonin Stat Lab 07/31/24 11:10 Completed Prothrombin Time with INR Stat Lab 07/31/24 11:10 Completed Troponin I Stat Lab 07/31/24 11:10 Completed Urinalysis Stat Lab 07/31/24 13:01 Completed LORazepam [Ativan Inj] Med 07/31/24 12:20 Discontinued 1 mg IVP X1 ONE Ondansetron Inj [Zofran Inj] Med 07/31/24 11:11 Active 4 mg IV Q4HR PRN Tenecteplase Inj [TNKase Inj] Med 07/31/24 11:10 Discontinued 50 mg .ROUTE .STK-MED ONE Oxygen Delivery NOW RT 07/31/24 11:11 Active Vital Signs Vital signs: Vital Signs Pulse Rate 116 H 07/31/24 11:11 Oxygen Flow Rate 98 07/31/24 11:11 Neuro Symptoms / Deficit MDM Narrative MDM Narrative:: Ms. Moses presents to the emergency department with altered mental status, right facial droop, increase tonicity which could be a seizure versus TIA versus panic attack. She was in her primary care provider's office where she has an onset of altered mental status with a right facial droop. However on my exam in the ambulance bay, she had poor cooperation and resisting movement of her upper and lower extremities on my exam. There was no lateralizing weakness aside from the right facial droop. There were no clonic activities, no bowel or bladder loss. There does not appear to be any tongue biting. As she was not able to provide a history, and recent sudden change in mental status with right facial droop, proceeded with the stroke activation. As the daughter arrived via further history where she had a cholecystectomy approximately a week ago therefore she is not a candidate for tPA. Additionally symptoms appear to have resolved to the point where now she is awake, teary-eyed, and crying. She has no focal neurologic deficit and her facial droop has resolved. The daughter notes that she is crying and anxious because all of her siblings have here in the hospital as she does this every time she comes to the hospital. She does also note 2 admissions for borderline DKA and saadia DKA at [facility] and [facility] respectively. These have been in the setting of his additional epigastric pain, nausea and vomiting after she takes Ozempic. She has been having the side effects since starting Ozempic February of last year. She did briefly stop the Ozempic in May where her abdominal symptoms had resolved. She restarted the Ozempic about 10 days prior to her first admission here at [facility] on July 16. She has not taken her Ozempic since her admission to [facility]. She does not exhibit any nausea vomiting or abdominal symptoms here today. And laboratory testing shows no signs of DKA. Given her persistent altered mental status despite being ruled out for DKA, having her gallbladder taken out already, we discussed with neurology and feel that it would beneficial to admit her onto the stroke service for an MRI to rule out TIA and to consider even possibly workup for seizure. If these testings are negative to consider even panic or conversion disorder. I, Penny Dean, am scribing for and in the presence of Dr. Taylor. Patient data External records reviewed:: [facility] previous records (I reviewed admission from 07/16/2024 through 07/19/2024) Clinical information provided by:: EMS and family (Daughter ) Social determinants that could affect healthcare access:: none Patient has the following chronic illnesses:: COPD, PAD s/p left BKA in 2019, hypertension, diabetes, DKA, hyperlipidemia, CKD, s/p cholecystectomy performed 07/29/2024 at [facility] [address] How is presenting disease/condition affected by chronic disease/condition?: exacerbated by Evaluation data The following diagnostics were reviewed and interpreted by me:: lab results, radiology exam(s) (Head CT my interpretation, no ICH, no mass. ) and EKG tr acing(s) (Sinus tachycardia, rate 112, normals axis, normal intervals, no acute ST or T-wave changes, no STEMI. ) Lab and/or radiology exams considered but not ordered:: None Interpretation Summary: Ordering Physician: Damion Taylor MD Date of Service: 07/31/24 Procedure(s): CT stroke protocol Accession Number(s): [id number] cc: Damion Taylor MD; Jonathan Daniels MD~ Examination: CT brain head without contrast. 2-D sagittal coronal reconstructions Date and time of exam:07/31/2024 1116 hours Comparison July 16, 2024 INDICATIONS: Stroke alert, onset right-sided body weakness beginning 30 minutes ago CTDI: vol (mGy):48.6 DLP: (mGycm):974 Technique: Multiple CT axial sections of the brain have been obtained, 5 mm slice thickness. Contrast has not been administered. 2-D sagittal, coronal reconstructions have been obtained Low dose protocols were performed. One or more of the following dose reduction techniques were used; automated exposure control, adjustment of the mA and/or KV according to patient size, use of iterative reconstruction technique. Findings: No significant ventricular enlargement. Intra-axial or extra-axial hemorrhage density is not seen. No mass effect or midline shift Basal cisterns are not remarkable. Fourth ventricle is midline. Cranial vault intact. Impression: Negative for acute hemorrhage, mass effect or midline shift Dictated By: Jonathan Daniels MD Signed By: <Electronically signed by Jonathan Daniels MD in OV> 07/31/241120 Ordering Physician: Damion Taylor MD Date of Service: 07/31/24 Procedure(s): CT angio stroke protocol Accession Number(s): [id number] cc: Damion Taylor MD; Jonathan Daniels MD; Chino Baig MD~ Examination: CTA carotids with intravenous contrast CTA brain, head with intravenous contrast. 2-D sagittal, coronal reconstructions. 3-D reconstructions. Exam date and time: July 31, 2024 1120 hours INDICATIONS: Stroke alert, onset right-sided body weakness beginning 30 minutes ago CTDI: vol (mGy) 11.1 DLP: (mGycm) 424 Technique: Multiple CTA axial brain, head carotid images post intravenous contrast injection 75 cc, [id number]. 2-D sagittal, coronal reconstructions. 3-D reconstructions, 3-D post processing including vascular maximum intensity projection images. Low dose protocols were performed. One or more of the following dose reduction techniques were used; automated exposure control, adjustment of the mA and/or KV according to patient size, use of iterative reconstruction technique. Findings: Scattered opacities in both upper lung zones Heavy calcification right carotid bifurcation with 70 % stenosis origin right internal carotid artery Heavy calcification left common carotid bifurcation with 30-50% stenosis origin left internal carotid artery Dominant left vertebral artery with no critical stenoses No cerebral large vessel arterial occlusions or thrombus IMPRESSION: 70% stenosis origin right internal carotid artery 30-50% stenosis origin left internal carotid artery No cerebral large vessel arterial occlusions or thrombus Dictated By: Jonathan Daniels MD Signed By: <Electronically signed by Jonathan Daniels MD in OV> 07/31/24 1158 Medications / Prescriptions Medications or Prescriptions considered but not ordered:: None Medication administrations:: Medication Administration History Ondansetron HCl (Ondansetron Inj 2 Mg/Ml Inj 2 Ml) 4 mg IV Q4HR PRN PRN Reason: NAUSEA OR VOMITING Stop: 08/30/24 11:10 Discontinued Medications Lorazepam (Lorazepam 2 Mg/Ml Vial) 1 mg IVP X1 ONE Stop: 07/31/24 12:21 Last Admin: 07/31/24 12:35 Dose: 1 mg Documented By: FERNY Tenecteplase (Tenecteplase Inj 50 Mg Vial) Confirm Administered Dose 50 mg .ROUTE .STK-MED ONE Stop: 07/31/24 11:11 See above Consultations Consultation(s) initiated? (list below): Yes Consultation #1 (Physician, Specialty, Details): I spoke with teleneurologist Dr. Lawrence. Discussed patients PMHx, HPI, ED course, exam findings, labs, and radiology results. States patient is not a tpa candidate given recent surgery and plavix use. States patient could have had a seizure and advised admission for further work-up, and brain MRI. Time: 11:48 Diagnosis Neuro Differential Diagnosis: subarachnoid hemorrhage, cerebrovascular accident and transient cerebral ischemia Most likely diagnosis given after review of the tests above:: See below Admission Indicated Admission indicated?: indicated Admission Request Was there a request for admission?: Yes Admission Attestation Admission request attestation: Discussed case with [] from Hospitalist service regarding admission. Discussed patients ED course, exam findings, labs, and radiology results. The Hospitalist [agrees,declines] to accept the patient for admission. Disposition Plan Disposition Plan: Admit Critical Care Time Critical Care Time Critical Care Time: Yes Total Critical Care Time (min.): 35 Attestation: The high probability of sudden, clinically significant deterioration in the patient's condition required the highest level of my preparedness to intervene urgently. The services I provided to this patient were to treat and/or prevent clinically significant deterioration. Services included the following: chart data review, reviewing nursing notes and/or old charts, documentation time, sap payroll consultant collaboration regarding findings and treatment options, medication orders and management, direct patient care, vital sign assessments and ordering, interpreting and reviewing diagnostic studies and lab tests. Aggregate critical care time includes only time during which I was engaged in work directly related to the patient's care, as described above, whether at bedside or elsewhere in the Emergency Department. It did not include time spent performing other reported procedures or the services of residents, students, nurses or physician assistants. Discharge Plan Plan Patient Disposition: Admit Acute Care w/in Hospital Prescriptions/Referrals Prescriptions/Med Rec: No Action hydrochlorothiazide 25 mg Tablet 25 mg PO QDAY gabapentin 600 mg Tablet 300 mg PO QHSPRN PRN (Reason: Pain) metformin 1,000 mg Tablet 1,000 mg PO BID aspirin 81 mg Tablet,Chewable 81 mg PO DAILY omeprazole 20 mg Tablet,Delayed Release (Dr/Ec) 20 mg PO QDAY PRN (Reason: Gastric Reflux) (DME) FreeStyle [place] 3 Sensor Device See Rx Instructions .Route Qty: 2 3RF Rx Instructions: Apply every 14 days (DME) FreeStyle [place] 3 Blacklick Misc See Rx Instructions .Route Qty: 1 0RF Rx Instructions: As directed (DME) pen needle, diabetic [Pen Needle] 31 gauge x 1/4 needle See Rx Instructions .Route Qty: 100 3RF Rx Instructions: As directed insulin glargine [Lantus Solostar U-100 Insulin] 100 unit/mL (3 mL) insulin pen 18 unit subcut QPM Qty: 15 3RF Ozempic 1 mg/dose (4 mg/3 mL) pen injector 1 mg subcut QWEEK Qty: 3 3RF cyclobenzaprine 10 mg tablet 10 mg PO TID PRN (Reason: muscle spasm) Qty: 30 0RF Referrals: Chino Baig MD [Primary Care Provider] - In 1 week Problem List Clinical Impression: Altered mental status, Anxiety Patient/Caregiver Discharge Instructions Print Language: Irish Stand Alone Forms: Mavis Award Info., Patient Portal Info Letter
[2024-07-31 11:20] LABS: Basophils # (Auto) 0.1 Thou/mm3 (0.0-0.2); Basophils % (Auto) 1 % (0-2.5); Eosinophils # (Auto) 0.1 Thou/mm3 (0.0-0.5); Eosinophils % (Auto) 2 % (0-10); Hematocrit 34.9 % (36.0-46.0); Hemoglobin 11.4 g/dL (12.0-16.0); Immature Granulocytes % (Auto) 1 % (0-0); Immature Granulocytes Auto 0.05 Thou/mm3 (0.00-0.00); Lymphocytes # (Auto) 1.5 Thou/mm3 (1.0-4.8); Lymphocytes % (Auto) 19 % (10-50); Mean Corpuscular HGB Conc 32.7 g/dl (31.0-37.0); Mean Corpuscular Hemoglobin 28.9 pg (25.0-35.0); Mean Corpuscular Volume 89 fL (80-100); Monocytes # (Auto) 0.6 Thou/mm3 (0.0-0.8); Monocytes % (Auto) 8 % (0-12); Neutrophils # (Auto) 5.8 Thou/mm3 (1.8-7.7); Neutrophils % (Auto) 71 % (37-80); Nucleated Red Blood Cell % 0 /100 WBC (0); Platelet Count 476 Thou/mm3 (140-440); RDW Standard Deviation 43.3 fL (36.4-46.3); Red Blood Count 3.94 Miln/mm3 (4.00-5.20); White Blood Count 8.2 Thou/mm3 (3.6-11.0)
[2024-07-31 11:40] LABS: Alanine Aminotransferase 69 U/L (10-49); Albumin, Serum 4.5 gm/dL (3.5-5.0); Albumin/Globulin Ratio 1.4 (1.2-2.2); Alkaline Phosphatase 74 U/L (46-116); Anion Gap 11 (7-16); Aspartate Amino Transferase 101 U/L (0-34); BUN/Creatinine Ratio 13 Ratio (12-20); Bilirubin,Total 0.4 mg/dL (0.3-1.2); Blood Urea Nitrogen 14 mg/dL (9-23); Calcium 9.8 mg/dL (8.3-10.6); Calcium (Corrected) 9.8 mg/dL (8.5-10.1); Chloride 104 mMol/L (98-107); Creatinine (Component) 1.1 mg/dL (0.6-1.3); Globulin 3.3 gm/dL (2.3-3.5); Glucose 170 mg/dL (74-106); Magnesium 1.3 mg/dL (1.6-2.6); Osmolality,Calculated 282 (275-295); Potassium 4.7 mMol/L (3.4-5.1); Sodium 139 mMol/L (136-145); Total Protein 7.8 gm/dL (5.7-8.2); Troponin I < 0.020 ng/mL (0.0-0.045); eGFR 59 See Note
[2024-07-31 11:41] LABS: Partial Thromboplastin Time 25.7 Seconds (22.0-36.0); Prothrombin Time 10.9 Seconds (9.0-12.2)
--- NOTE | 2024-07-31 11:59 | PC.NURSE ---
Pt BIBA for stroke like symptoms while in the waiting room of 's office EMS was called pt arrived to ER and was evaluated by Dr. Taylor and verified stroke alert and pt was taken to CT
[2024-07-31 12:04] LABS: Lactate (Lactic Acid) 2.4 mMol/L (0.4-2.0)
--- NOTE | 2024-07-31 12:06 | ESCONSULT_ITS ---
Tele Neuro Consultation Consultation Date 07/31/24 Most Recent Vital Signs Last Vital Signs Temp 98.3 F 07/31/24 11:40 Pulse 121 H 07/31/24 11:40 Resp 22 H 07/31/24 11:40 BP 148/85 H 07/31/24 11:40 Pulse Ox 98 07/31/24 11:40 O2 Del Method Nasal Cannula 07/31/24 11:40 O2 Flow Rate 2 07/31/24 11:40 Laboratory-Coagulation Panel PT 10.9 Seconds (9.0-12.2) 07/31/24 11:10 INR 1.0 (0.9-1.3) 07/31/24 11:10 APTT 25.7 Seconds (22.0-36.0) 07/31/24 11:10 Consultation Narrative [facility] Tele[facility]rology [facility] Patient Name:???Miki Moses Date of :???1970 Identification Number:??? Date of Service:???07/31/2024 11:07:28 Diagnosis:?G93.49 - Encephalopathy Multifactorial Impression: ?Acute aphasia and right sided weakness/stiffness in the setting of cholecystitis 2 days ago. The degree of weakness and aphasia is highly variable. She also appears to be in significant pain and is hyperventilating. Per her daughter, she has had previous episodes of confusion that have been unexplained, however has not had weakness with these. Etiology of symptoms is unclear at this time, ddx includes encephalopathy, complex partial seizure, left hemispheric ischemia, or acute pain-related behavior given recent surgery. IV thrombolysis was not recommended due to major surgery 2 days ago. There was no large vessel occlusion seen on CTA head/neck to indicate need for thrombectomy, though there is bilateral (right more than left) extracranial carotid stenosis. ? ?Recommendations: ?- EEG ?- Seizure precautions ?- Metabolic/infectious workup ?- MRI brain Our recommendations are outlined below. Recommendations: ? Stroke/Telemetry Floor ? Neuro Checks ? Bedside Swallow Eval ? DVT Prophylaxis ? IV Fluids, Normal Saline ? Head of Bed 30 Degrees ? Euglycemia and Avoid Hyperthermia (PRN Acetaminophen) Sign Out: ? Discussed with Emergency Department Provider Advanced Imaging:CTA Head and Neck Completed. LVO:No Patient in not a candidate for LAURIE Metrics: Last Known Well: 07/31/2024 10:45:00 Dispatch Time: 07/31/2024 11:07:28 Arrival Time: 07/31/2024 11:10:35 Initial Response Time: 07/31/2024 11:10:13Symptoms: altered mental status. Initial patient interaction: 07/31/2024 11:30:03 NIHSS Assessment Completed: 07/31/2024 11:36:54Patient is not a candidate for Thrombolytic. Thrombolytic Medical Decision: 07/31/2024 11:37:03Patient was not deemed candidate for Thrombolytic because of following reasons: Major surgery or serious trauma within the previous 14 days . I personally Reviewed the CT Head and it Showed no acute hemorrhage Primary Provider Notified of Diagnostic Impression and Management Plan on: 07/31/2024 11:49:00 History of Present Illness:Patient is a 53 year old Female. Patient was brought by EMS for symptoms of altered mental status. Patient is a 53 year old woman presenting to the ED from her doctor's office waiting room after her daughter brought her in this morning because she was not acting like herself. She has a recent history of cholecystitis, now s/p cholecystectomy 07/29/24. While in the waiting room she developed right facial droop, worsened confusion, and then right arm and leg weakness and stiffness. No known seizure history, no history of stroke. Her daughter reports that she has been having episodes of confusion recently, which have been attributed to encephalopathy due to DKA, however the right sided stiffness was not previously reported. + urinary incontinence with this episode ? Past Medical History: ?Hypertension ?Diabetes Mellitus ?Hyperlipidemia ?There is no history of Atrial Fibrillation ?There is no history of Coronary Artery Disease ?There is no history of Stroke ?There is no history of Seizures Other PMH:? COPD, PAD, CKD Past Hospitalization:??Recent discharged after admission for DKA and cholecystitis, metabolic encephalopathy Medications: No Anticoagulant use? Antiplatelet use:?Yes?clopidogrel Reviewed EMR for current medications Other Medications Pertinent To Assessment Include: metformin, farxiga, ozempic, gabapentin, HCTZ, sertraline, simvastatin, Trelegy ?Hydrocodone Allergies:? Reviewed Description:?singulair - anaphylaxis Social History: Smoking: Former Alcohol Use: Former Drug Use: No Family History: There is no family history of premature cerebrovascular disease pertinent to this consultation ROS : 14 Points Review of Systems was performed and was negative except mentioned in HPI. Past Surgical History: There Is No Surgical History Contributory To Today?s Visit There Is Surgical History of:? cholecystectomy 2 days ago ?left BKA ? Examination: BP(148/62),?Pulse(102),?Blood Glucose(181) 1A: Level of Consciousness - Alert; keenly responsive?+ 0 1B: Ask Month and Age - Aphasic?+ 2 1C: Blink Eyes & Squeeze Hands - Performs Both Tasks?+ 0 2: Test Horizontal Extraocular Movements - Normal?+ 0 3: Test Visual Prince - No Visual Loss?+ 0 4: Test Facial Palsy (Use Grimace if Obtunded) - Minor paralysis (flat nasolabial fold, smile asymmetry)?+ 1 5A: Test Left Arm Motor Drift - No Drift for 10 Seconds?+ 0 5B: Test Right Arm Motor Drift - Drift, but doesn't hit bed?+ 1 6A: Test Left Leg Motor Drift - No Drift for 5 Seconds?+ 0 6B: Test Right Leg Motor Drift - Drift, but doesn't hit bed?+ 1 7: Test Limb Ataxia (FNF/Heel-Carter) - Does Not Understand?+ 0 8: Test Sensation - Normal; No sensory loss?+ 0 9: Test Language/Aphasia - Severe Aphasia: Fragmentary Expression, Inference Needed, Cannot Identify Materials?+ 2 10: Test Dysarthria - Mild-Moderate Dysarthria: Slurring but can be understood?+ 1 11: Test Extinction/Inattention - No abnormality?+ 0 NIHSS Score:?8 NIHSS Free Text :?hyperventilating, appears to be in pain. Increased right arm/leg tone per bedside staff report Pre-Morbid Modified Zoe Scale:4 Points = Moderately severe disability; unable to walk and attend to bodily needs without assistance Spoke with :?Dr. Taylor at bedside This consult was conducted in real time using interactive audio and video technology. Patient was informed of the technology being used for this visit and agreed to proceed. Patient located in hospital and provider located at home/office setting. Patient is being evaluated for possible acute neurologic impairment and high probability of imminent or life-threatening deterioration. I spent total of 55 minutes providing care to this patient, including time for face to face visit via telemedicine, review of medical records, imaging studies and discussion of findings with providers, the patient and/or family. Dr Aria Lawrence [facility] For Inpatient follow-up with [facility] physician please call [facility] at . As we are not an outpatient service for any post hospital discharge needs please contact the hospital for assistance. If you have any questions for the [facility] physicians or need to reconsult for clinical or diagnostic changes please contact us via [facility] at . ?
[2024-07-31] MEDS: LORazepam 2 MG/ML VIAL 1 MG IVP (12:35)
[2024-07-31 13:05] LABS: Lipase 23 U/L (12-53); Procalcitonin 0.23 ng/ml (0.0-0.49)
[2024-07-31 13:11] LABS: Collection Type, Urine Clean Catch
[2024-07-31 13:19] LABS: Bilirubin,Urine Negative (Negative); Blood,Urine Negative (Negative); Clarity,Urine Clear (Clear/Hazy); Color,Urine Colorless (Lt Yel-Yel); Glucose, Urine 4+ (Negative); Ketones,Urine 1+ (Negative); Leukocyte Esterase,Urine Negative (Negative); Nitrite,Urine Negative (Negative); PH,Urine 7.5 (5.0-7.0); Protein,Urine 1+ (Neg - Trace); RBC,Urine 4 /hpf (0-3); Specific Gravity,Urine 1.023 (1.001-1.035); Squamous Epithelial Cell,Urine 5 /hpf (0-5); Urobilinogen,Urine Negative mg/dL (0.0-1.0); WBC,Urine 2 /hpf (0-5)
[2024-07-31 13:34] LABS: Amphetamine/Methamp Scrn,U Negative (Negative); Barbiturate Screen,Urine Negative (Negative); Benzodiazepines Screen,Urine Negative (Negative); Benzoylecgonine Screen, Ur Negative (Negative); Fentanyl Screen,Urine Negative (Negative); Opiate Screen,Urine Positive (Negative); THC Screen,Urine Negative (Negative)
[2024-07-31 14:58] LABS: Reflex Lactate? Y
--- NOTE | 2024-07-31 15:30 | PC.CC ---
Patient is a 53 year-old female who presents to the hospital for stroke alert. SRIKANTHWRama made [id number] contact with patient. ASW introduced self, role, and reason for visit. At bedside was patient's jamey James who completed assessment with ASW as patient was alert but not oriented. Patient's daughter confirmed information on demographics for the patient. She reports she is patient's caregiver as she receives payment to help care for the patient through [facility]. Per daughter, patient had a left below the knee amputation and uses a wheelchair to ambulate. Patient has a prosthetic but does not use it as she has COPD and has difficulty breathing when using her prosthetic. Patient receives primary care with [facility] and uses [facility] for prescription medication. Upon discharge the patient's daughter is open to SNF is it is needed to help the patient. technical services coordinator to follow up with any discharge needs.
[2024-07-31 15:42] LABS: Lactic Acid, 3 HR 1.4 mMol/L (0.4-2.0)
--- NOTE | 2024-07-31 16:00 | PD.RESHP ---
Documentation for date of: 07/31/24 HPI History of Present Illness History of present illness: HPI is limited as patient is poor historian with expressive aphasia, however patient's daughter present at bedside who was able to provide some history Miki is a 53 y/o female with PMHx of COPD (not on home oxygen), PAD s/p left BKA [2020], hyperlipidemia, CKD stage IIIb secondary to insulin-dependent diabetes mellitus type 2 and essential hypertension who is here for an evaluation R sided facial droop, and right upper and lower extremity weakness, and expressive aphasia prior to arrival while at the doctor's office, Dr. Stearns. Patient reports not having symptoms like this before, however patient's daughter was present at bedside says that patient has been feeling out of it for the past 3 weeks. She also was in [facility] for starvation on 07/18/2024. She has been in and out of the hospital for abdominal symptoms including nausea vomiting and abdominal pain likely related due to patient Ozempic side effect use and also patient recently had cholecystectomy for symptomatic cholelithiasis and cholecystitis done at [facility] a few days ago. Patient's daughter reports that she was at the doctor's office with her mother and said she started to experience some right-sided facial droop and leaned over her right shoulder and was unable to move her right leg. Patient did not experience any nausea, vomiting or diarrhea or headache at the time. She was taken from clinic for further evaluation and went to the ED. She denies having any stroke history or atrial fibrillation. Patient is wheelchair-bound and has a prosthetic which she uses at times. She does not use home oxygen or use of CPAP, however says that her oxygen goes low if she tries to walk around and that is why she does not walk around a lot. Had a stress test done sometime last year by Dr. Bee, and said it was normal, and will follow-up with him sometime this year in September. Pt says she does not use home oxygen, however does not know if she has had formal PFTs done. Also does not using CPAP at home. Also says she is wheelchair-bound, has a prosthetic, however does not use it as much because she desaturates when she walks. ED Course: Pt arrive to the ED with a temperature of 98.3, heart rate of 116, respiratory rate 22, blood pressure 148/85, saturating 98% 2 L nasal cannula. Patient was worked up and was found to have a white count of 8.2, hemoglobin 11.4, platelet count of 476, PT/INR of 10.9 and 1.0 respectively, PTT of 25.7, sodium of 139, potassium 4.7, chloride of 104, bicarb of 24, BUN/creatinine 14 and 1.1 respectively, lactate 2.4, calcium of 9.8, magnesium of 1.3, AST ALT 101 and 69 respectively, troponin negative x 1, Pro-To 0.23, lipase 23, UA did show +4 glucose, +1 urine ketones, 4 RBCs. EKG did show sinus tachycardia but no ST changes observed at this time. Head CT was negative for acute hemorrhage or mass effect or midline shift. Head neck CTA showed 70% stenosis of the right internal carotid artery, 30 to 50% stenosis of the left ICA PMHx: As above Surgeries: Left BKA, 3 C-sections, cholecystectomy Allergies: Montelukast gives tongue swelling Meds: Amlodipine, aspirin, cyclobenzaprine, Farxiga, Trelegy, gabapentin, hydrochlorothiazide, omeprazole, metformin Family history: Extensive family history of heart problems including many family members dying from CHF at early ages 40s and 50s. Some family history of stroke as well. It is said that patient sister got a pacemaker in 20s or 30s. Social history: Born and raised in [facility], has 3 kids including 2 daughters. Lives with one of her daughters and is taken care of by one of her daughters. 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 Smoked on and off for about 20 years about a pack a week, has not smoked for about 7 years. Some THC use in the past, however it denies any IV or heart drug use. Mainly is wheelchair-bound. Mainly eats all food at home cooked by her daughter small portions large number of meals. Denies any recent travel. Review of Systems Review of Systems Narrative Review of Systems: 12 point ROS reviewed and is otherwise negative unless stated directly in the HPI Exam Vital Signs Temp Pulse Resp BP Pulse Ox O2 Del Method O2 Flow Rate 97.5 F 117 H 24 H 141/81 H 100 Room Air 2 07/31/24 13:55 07/31/24 13:55 07/31/24 13:55 07/31/24 13:55 07/31/24 13:55 07/31/24 13:55 07/31/24 11:40 Narrative Exam General: AAOx3, in mild distress, crying at times during interview HEENT: Moist mucous membranes, conjunctiva clear, EOMI, PERRLA, Cardiovascular: S1, S2, radial pulses +2 bilat, RRR Pulmonary: Difficulty appreciating breath sounds, no wheezing auscultated, no cough GI: No tenderness to light or deep palpitation, no guarding, rigidity, rebound tenderness or distension Extremities: Patient does have left BKA, has multiple tattoos throughout body including neck tattoo in the back, no pitting edema or erythema seen in right lower extremity Neuro: AAOx3, no obvious focal motor or sensory deficits in the UE or LE bilat, pupillary reflex intact bilaterally, no nystagmus noted during examination, at times patient displayed expressive aphasia Psych: Good judgement, thought and behavior, extremely anxious Results: Labs 08/01/24 04:18 08/01/24 04:18 Labs: Short CBC 07/31/24 Range/Units 11:10 WBC 8.2 (3.6-11.0) Thou/mm3 Hgb 11.4 L (12.0-16.0) g/dL Hct 34.9 L (36.0-46.0) % Plt Count 476 H D (140-440) Thou/mm3 BMP 07/31/24 11:10 Sodium 139 Potassium 4.7 Chloride 104 Carbon Dioxide 24.0 BUN 14 Creatinine 1.1 Glucose 170 H Calcium 9.8 Cardiac Enzymes 07/31/24 Range/Units 11:10 Troponin I < 0.020 (0.0-0.045) ng/mL Liver Function 07/31/24 Range/Units 11:10 Total Bilirubin 0.4 (0.3-1.2) mg/dL AST 101 H (0-34) U/L ALT 69 H (10-49) U/L Alkaline Phosphatase 74 (46-116) U/L Albumin 4.5 (3.5-5.0) gm/dL Urine 07/31/24 Range/Units 13:01 Urine Color Colorless A (Lt Yel-Yel) Urine Clarity Clear (Clear/Hazy) Urine pH 7.5 H (5.0-7.0) Ur Specific [place] 1.023 (1.001-1.035) Urine Protein 1+ A (Neg - Trace) Urine Glucose (UA) 4+ A (Negative) Quality Measures Quality Measures stroke Suspected type of Stroke: Non Acute Last known well (date): 07/31/24 Last known well (time): 10:40 Tenecteplase given: Reason(s) Tenecteplase not given: Use of NOAC (eliquis, xarelto, or pradaxa) and Recent major surgery and/or trauma not given Rehab services: PT evaluation ordered VTE Prophylaxis: pharmaceutical Antithrombotic by day 2:: ordered Statin ordered: >75 y/o moderate or high intensity dose Anticoagulation ordered for A-fib or flutter (current or hx): ordered Medications Home Medications and Allergies Home Medications ?Medication ?Instructions ?Recorded ?Confirmed ?Type aspirin 81 mg chewable tablet 81 mg PO DAILY 01/01/20 07/16/24 History gabapentin 600 mg tablet 300 mg PO QHSPRN PRN Pain 01/01/20 07/16/24 History metformin 1,000 mg tablet 1,000 mg PO BID 01/01/20 07/16/24 History hydrochlorothiazide 25 mg tablet 25 mg PO QDAY 06/21/20 07/16/24 History omeprazole 20 mg tablet,delayed 20 mg PO QDAY PRN Gastric Reflux 07/16/24 07/16/24 History release amlodipine 5 mg tablet mg 07/31/24 History dapagliflozin propanediol 5 mg mg 07/31/24 History tablet (Farxiga) fluticasone fur. 100 mcg-umeclid inhalation 07/31/24 History 62.5 mcg-vilant 25 mcg inhalat.powder (Trelegy Ellipta) Allergies Allergy/AdvReac Type Severity Reaction Status Date / Time montelukast (From [facility]) Allergy Severe Swelling Verified 07/16/24 10:23 of Lip/Tongue/Throat Visit Medications Acetaminophen (Acetaminophen 325 Mg Tablet) 650 mg PO Q6H PRN PRN Reason: Fever >101.5 or pain 1-3 Stop: 08/30/24 14:43 Hydrocodone Bitart/Acetaminophen (Hydrocodone/Apap 5/325 Tablet) 1 tab PO Q4HR PRN PRN Reason: PAIN SCALE 4-6 (Moderate Stop: 08/05/24 14:43 Albuterol (Albuterol Rt 2.5 Mg/0.5 Ml Nebu) 2.5 mg INH Q2HR PRN PRN Reason: SHORTNESS OF BREATH OR WHEEZE Stop: 08/30/24 14:43 Aspirin (Aspirin Ec 81 Mg Tabec) 81 mg PO QDAY MAKEDA Stop: 08/30/24 15:44 Cyclobenzaprine HCl (Cyclobenzaprine 5 Mg Tablet) 10 mg PO TID PRN PRN Reason: muscle spasm Stop: 08/30/24 21:59 Dapagliflozin (Dapagliflozin Propanediol 5 Mg Tablet) 5 mg PO QDAY MAKEDA Stop: 08/31/24 08:59 Gabapentin (Gabapentin 300 Mg Capsule) 300 mg PO HS PRN PRN Reason: AGITATION Stop: 08/30/24 20:59 Magnesium Sulfate (Magnesium Sulfate Ivpb) 4 gm in 50 mls @ 12.5 mls/hr IV X1 ONE Stop: 07/31/24 18:52 Home Medication- Please Speak With Patient Caregiver To Have Rx Brought To [facility] 1 inh IH QDAY MAKEDA Stop: 08/31/24 08:59 Ondansetron HCl (Ondansetron Inj 2 Mg/Ml Inj 2 Ml) 4 mg IV Q4HR PRN PRN Reason: NAUSEA OR VOMITING Stop: 08/30/24 11:10 Pantoprazole Sodium (Pantoprazole Inj 40 Mg Vial) 40 mg IV QDAY MAKEDA Stop: 08/31/24 08:59 Sennosides (Senna Tablet) 1 tab PO QDAY PRN; Protocol PRN Reason: constipation Stop: 08/30/24 14:43 Sodium Chloride (Sodium Chloride Rt Radha 0.9% 3 Ml Nebu) 3 ml INH PRN PRN PRN Reason: SOLN Stop: 08/30/24 14:43 Discontinued Medications Lorazepam (Lorazepam 2 Mg/Ml Vial) 1 mg IVP X1 ONE Stop: 07/31/24 12:21 Last Admin: 07/31/24 12:35 Dose: 1 mg Pantoprazole Sodium (Pantoprazole Inj 40 Mg Vial) 40 mg IVP X1 ONE Stop: 07/31/24 14:57 Assessment & Plan Plan Assessment Miki is a 53 y/o female with PMHx of COPD (not on home oxygen), PAD s/p left BKA [2020], hyperlipidemia, CKD stage IIIb secondary to insulin-dependent diabetes mellitus type 2 and essential hypertension who is currently admitted for CVA rule out #CVA rule out #Expressive aphasia DDx: TIA, acute CVA, seizures Patient did appear to have some facial droop and right upper and lower motor extremity weakness, seems to be quite extended for possible stroke as we would expect more focal symptoms Patient did appear to have some stenosis seen on CT head neck angio Patient does not have stroke history Denies having any history of atrial fibrillation Initial head CT was negative However patient is displaying some expressive aphasia Patient did express at some point that they felt like the jaw had locked, no seizure history at this time Plan: ? Neuro consulted, appreciate recs ? MR stroke protocol ? Carotid duplex bilateral ? Echo ? Allow for permissive hypertension for 24 hours ? Neurochecks every 4 hours ? Seizure precautions ? Bedrest ? Follow-up lipid panel, TSH and A1c for cardiac stratification ? Continue with ASA 81 #History of COPD Not on home oxygen Relatively wheelchair-bound, uses prosthetic sometimes Plan: ? Resume home Trelegy ? Albuterol nebulizer as needed #History of PAD status post left BKA #History of hyperlipidemia #History of essential hypertension Plan: ? Follow-up lipid panel ? Allowing for permissive hypertension at this time for 24 hours #History of CKD stage IIIb Creatinine 1.1 today Plan: ? Trend with CMP ? Avoid nephrotoxic agents #History of insulin-dependent diabetes mellitus type 2 Plan: ? Follow-up A1c ? SSI ? Resumed home farxiga ? Hypoglycemic protocol in place #Health Maintenance Disposition: Telemetry DVT prophylaxis: Heparin GI prophylaxis: Protonix Diet: Dysphagia 2 CODE STATUS: Full Patient seen and care discussed with my senior resident, Dr. Zavala, and my attending physician, Dr. Kalpana Abreu, PGY-1 Attending Provider Attestation/Addendum I reviewed labs, imaging, EKG, home medications and prior available records. Face to face evaluation was performed by me. I have personally examined the patient and discussed assessment and plan with the IM team. I reviewed the resident note and agree with the plan with exceptions as below. 53-year-old female with history of recent cholecystectomy 2 days prior to admission who presented with a chief complaint of right-sided weakness and expressive aphasia. She was admitted for CVA workup Right-sided weakness Expressive aphasia Symptoms of CVA Syncope Transaminitis Left below the knee amputation CT head is negative for acute changes. CTA showed significant ICA stenosis bilaterally Follow-up brain MRI Every 4 hour neurochecks Consulted neurology Started aspirin and atorvastatin PT/OT/speech evaluation Trend LFTs
[2024-07-31] MEDS: ASPIRIN EC 81 MG TABEC PO (16:32)
[2024-07-31] MEDS: PANTOPRAZOLE INJ 40 MG VIAL IVP (16:32)
[2024-07-31] MEDS: HYDROcodone/APAP 5/325 TABLET 1 TAB PO (16:33)
[2024-07-31] MEDS: CYCLObenzaPRINE 5 MG TABLET 10 MG PO (16:34)
[2024-07-31] MEDS: Magnesium Sulfate 4 GM Ivpb 4 GM/50 ML BAG IV (16:35)
--- NOTE | 2024-07-31 18:59 | XR_ITS ---
Examination: Carotid arterial duplex scan, ultrasound. Date and time of exam: July 31, 20242007 hours INDICATIONS: Stroke alert, onset today numbness left side of the body facial droop losses speech confusion Technique: Multiple sonographic images have been obtained of the carotid arteries and vertebral arteries, B-mode/grayscale imaging and Doppler spectral analysis and color flow Peak systolic and diastolic velocities have been recorded. Systolic diastolic ratios have been calculated. Findings: Right peak systolic velocities: Distal internal carotid artery peak systolic velocity is 0.9 M/sec Proximal internal carotid artery peak systolic velocity is 1.4 M/sec Carotid bifurcation peak systolic velocity is 0.8 M/sec External carotid artery peak systolic velocity is 1.1 M/sec Vertebral artery flow is antegrade. Left peak systolic velocities: Distal internal carotid artery peak systolic velocity is 0.8 M/sec Proximal internal carotid artery peak systolic velocity is 1.7 M/sec Carotid bifurcation peak systolic velocity is 0.5 M/sec External carotid artery peak systolic velocity is 1.4 M/sec Vertebral artery flow is antegrade Doppler waveform analysis demonstrates broadening of the left Impression: Right internal carotid artery demonstrates 20-40% stenosis. Left internal carotid artery demonstrates 40-60% stenosis.
[2024-08-01] VITALS: BP 155/88; PULSE 106; PULSE 110; RESP 19; TEMP 36.1; O2SAT 96
[2024-08-01] MEDS: MELATONIN 3 MG TABLET PO ×2 (00:06→20:29)
[2024-08-01] MEDS: QUEtiapine FUMARATE 25 MG TABLET PO (02:41)
[2024-08-01 04:00] VITALS: BP 123/63; PULSE 101; PULSE 104; RESP 12; TEMP 36.3; O2SAT 98
[2024-08-01 04:42] VITALS: BMI 23.6
[2024-08-01 06:01] LABS: Basophils # (Auto) 0.1 Thou/mm3 (0.0-0.2); Basophils % (Auto) 1 % (0-2.5); Eosinophils # (Auto) 0.1 Thou/mm3 (0.0-0.5); Eosinophils % (Auto) 2 % (0-10); Hematocrit 30.8 % (36.0-46.0); Hemoglobin 10.2 g/dL (12.0-16.0); Immature Granulocytes % (Auto) 1 % (0-0); Immature Granulocytes Auto 0.07 Thou/mm3 (0.00-0.00); Lymphocytes # (Auto) 1.8 Thou/mm3 (1.0-4.8); Lymphocytes % (Auto) 24 % (10-50); Mean Corpuscular HGB Conc 33.1 g/dl (31.0-37.0); Mean Corpuscular Hemoglobin 29.4 pg (25.0-35.0); Mean Corpuscular Volume 89 fL (80-100); Monocytes # (Auto) 0.9 Thou/mm3 (0.0-0.8); Monocytes % (Auto) 12 % (0-12); Neutrophils # (Auto) 4.5 Thou/mm3 (1.8-7.7); Neutrophils % (Auto) 61 % (37-80); Nucleated Red Blood Cell % 0 /100 WBC (0); Platelet Count 443 Thou/mm3 (140-440); RDW Standard Deviation 44.2 fL (36.4-46.3); Red Blood Count 3.47 Miln/mm3 (4.00-5.20); White Blood Count 7.4 Thou/mm3 (3.6-11.0)
[2024-08-01 06:17] LABS: Anion Gap 13 (7-16); BUN/Creatinine Ratio 13 Ratio (12-20); Blood Urea Nitrogen 13 mg/dL (9-23); Calcium 9.5 mg/dL (8.3-10.6); Calcium (Corrected) 9.5 mg/dL (8.5-10.1); Cardiac Risk Estimate 4.4 RATIO (3.7-5.6); Chloride 100 mMol/L (98-107); Cholesterol 151 mg/dL (132-200); Estimated Creatinine Clearance 59.5 mL/min (>60); Glucose 145 mg/dL (74-106); HDL Cholesterol 34 mg/dL (40-60); LDL Cholesterol,Calculated 90 mg/dL (0-130); Magnesium 1.8 mg/dL (1.6-2.6); Osmolality,Calculated 275 (275-295); Phosphorous 4.3 mg/dL (2.4-5.1); Potassium 3.5 mMol/L (3.4-5.1); Sodium 136 mMol/L (136-145); Thyroid Stimulating Hormone 0.82 uIU/mL (0.55-4.78); Triglycerides 137 mg/dL (30-150); eGFR > 60 See Note
[2024-08-01 06:51] LABS: Glucose Estimated Average 315 mg/dL (80-131); Hemoglobin A1C 12.6 % Hgb (4.8-6.0)
[2024-08-01 08:00] VITALS: BP 140/88; PULSE 101; PULSE 97; RESP 16; TEMP 36.2; O2SAT 96
[2024-08-01] MEDS: INSULIN LISPRO (AdmeLOG) 1 UNIT/0.01 ML UNIT SC ×3 (08:21→17:23)
--- NOTE | 2024-08-01 09:32 | PCS.ST ---
Swallow Evaluation completed. See report for details. Ok to advance diet consistencies. No dysphagia.
[2024-08-01] MEDS: Magnesium Sulfate 1 gm Ivpb 1 GM/100 ML BAG IV (09:52)
[2024-08-01] MEDS: PANTOPRAZOLE INJ 40 MG VIAL IV (09:52)
[2024-08-01] MEDS: POTASSIUM CHLORIDE 20 mEq TABCR 40 MEQ PO (09:53)
[2024-08-01] MEDS: DAPAGLIFLOZIN PROPANEDIOL 5 MG TABLET PO (09:53)
[2024-08-01] MEDS: ASPIRIN EC 81 MG TABEC PO (09:54)
--- NOTE | 2024-08-01 11:01 | PD.RESPRO ---
Documentation for date of: 08/01/24 Subjective Subjective Interval history: 08/01/2024: Pt examined at bedside. She took some seroquel and melatonin overnight which helped her sleep. She does say she is doing a lot better and she feels stronger. She says she is less emotional today. She denies any chest pain or shortness of breath at this time she has no other complaints at this time BUN/creatinine for patient 13 and 1.0 respectively, potassium 3.5, hemoglobin 10.2, white count 7.4. Systolic blood pressure 123 heart rate stable. Exam Vital Signs Temp Pulse Resp BP Pulse Ox O2 Del Method O2 Flow Rate 97.3 F 104 H 12 123/63 98 Room Air 2 08/01/24 04:00 08/01/24 04:00 08/01/24 04:00 08/01/24 04:00 08/01/24 04:00 08/01/24 04:00 07/31/24 11:40 Narrative Exam General: AAOx3, no acute distress HEENT: Moist mucous membranes, conjunctiva clear, EOMI, PERRLA, Cardiovascular: S1, S2, radial pulses +2 bilat, RRR Pulmonary: Difficulty appreciating breath sounds, no wheezing auscultated, no cough GI: No tenderness to light or deep palpitation, no guarding, rigidity, rebound tenderness or distension Extremities: Patient does have left BKA, has multiple tattoos throughout body including neck tattoo in the back, no pitting edema or erythema seen in right lower extremity Neuro: AAOx3, no obvious focal motor or sensory deficits in the UE or LE bilat, pupillary reflex intact bilaterally, no nystagmus noted during examination, patient not displaying expressive aphasia at this time compared to yesterday Psych: Cooperative at this time Objective Labs 08/02/24 04:52 08/02/24 04:52 Labs: Laboratory Results - last 24 hr 07/31/24 07/31/24 07/31/24 11:10 11:10 11:10 WBC 8.2 RBC 3.94 L Hgb 11.4 L Hct 34.9 L MCV 89 MCH 28.9 MCHC 32.7 RDW Std Deviation 43.3 Plt Count 476 H D Neut % (Auto) 71 Lymph % (Auto) 19 [place] % (Auto) 8 Eos % (Auto) 2 Baso % (Auto) 1 Neut # (Auto) 5.8 Lymph # (Auto) 1.5 [place] # (Auto) 0.6 Eos # (Auto) 0.1 Baso # (Auto) 0.1 Immature Gran # (Auto) 0.05 H Absolute Nucleated RBC 0.00 Immature Gran % 1 H Nucleated RBC % 0 PT 10.9 INR 1.0 APTT 25.7 Sodium 139 Potassium 4.7 Chloride 104 Carbon Dioxide 24.0 Anion Gap 11 BUN 14 Creatinine 1.1 Estim Creat Clear Calc Not Performed. eGFR 59 L BUN/Creatinine Ratio [address]ucose [address] Glu mg/dL Hemoglobin A1c Calculated Osmolality 282 Lactic Acid Calcium 9.8 Corrected Calcium 9.8 Phosphorus Magnesium 1.3 L Total Bilirubin 0.4 AST 101 H ALT 69 H Alkaline Phosphatase 74 Troponin I < 0.020 Total Protein 7.8 Albumin 4.5 Globulin 3.3 Albumin/Globulin Ratio 1.4 Triglycerides Cholesterol LDL Cholesterol, Calc HDL Cholesterol Cholesterol/HDL Ratio Lipase 23 Cancelled Procalcitonin 0.23 Cancelled TSH Ur Collection Type Urine Color Urine Clarity Urine pH Ur Specific [place] Urine Protein Urine Glucose (UA) Urine Ketones Urine Blood Urine Nitrite Urine Bilirubin Urine Urobilinogen (Auto) Ur Leukocyte Esterase Urine RBC Urine WBC Ur Squamous Epith Cells Urine Bacteria Urine Opiates Screen Urine Fentanyl Screen Ur Barbiturates Screen U Amphetamin/Meth Scrn U Benzodiazepines Scrn U Cocaine Metab Screen U Marijuana (THC) Screen 07/31/24 07/31/24 07/31/24 11:50 13:01 15:24 WBC RBC Hgb Hct MCV MCH MCHC RDW Std Deviation Plt Count Neut % (Auto) Lymph % (Auto) [place] % (Auto) Eos % (Auto) Baso % (Auto) Neut # (Auto) Lymph # (Auto) [place] # (Auto) Eos # (Auto) Baso # (Auto) Immature Gran # (Auto) Absolute Nucleated RBC Immature Gran % Nucleated RBC % PT INR APTT Sodium Potassium Chloride Carbon Dioxide Anion Gap BUN Creatinine Estim Creat Clear Calc eGFR BUN/Creatinine Ratio Glucose Estimated Ave Glu mg/dL Hemoglobin A1c Calculated Osmolality Lactic Acid 2.4 H 1.4 Calcium Corrected Calcium Phosphorus Magnesium Total Bilirubin AST ALT Alkaline Phosphatase Troponin I Total Protein Albumin Globulin Albumin/Globulin Ratio Triglycerides Cholesterol LDL Cholesterol, Calc HDL Cholesterol Cholesterol/HDL Ratio Lipase Procalcitonin TSH Ur Collection Type Clean Catch Urine Color Colorless A Urine Clarity Clear Urine pH 7.5 H Ur Specific [place] 1.023 Urine Protein 1+ A Urine Glucose (UA) 4+ A Urine Ketones 1+ A Urine Blood Negative Urine Nitrite Negative Urine Bilirubin Negative Urine Urobilinogen (Auto) Negative Ur Leukocyte Esterase Negative Urine RBC 4 H Urine WBC 2 Ur Squamous Epith Cells 5 Urine Bacteria None Urine Opiates Screen Positive A Urine Fentanyl Screen Negative Ur Barbiturates Screen Negative U Amphetamin/Meth Scrn Negative U Benzodiazepines Scrn Negative U Cocaine Metab Screen Negative U Marijuana (THC) Screen Negative 08/01/24 04:18 WBC 7.4 RBC 3.47 L Hgb 10.2 L Hct 30.8 L MCV 89 MCH 29.4 MCHC 33.1 RDW Std Deviation 44.2 Plt Count 443 H D Neut % (Auto) 61 Lymph % (Auto) 24 [place] % (Auto) 12 Eos % (Auto) 2 Baso % (Auto) 1 Neut # (Auto) 4.5 Lymph # (Auto) 1.8 [place] # (Auto) 0.9 H Eos # (Auto) 0.1 Baso # (Auto) 0.1 Immature Gran # (Auto) 0.07 H Absolute Nucleated RBC 0.00 Immature Gran % 1 H Nucleated RBC % 0 PT INR APTT Sodium 136 Potassium 3.5 D Chloride 100 Carbon Dioxide 23.0 Anion Gap 13 BUN 13 Creatinine 1.0 Estim Creat Clear Calc 59.5 L eGFR > 60 BUN/Creatinine Ratio 13 Glucose [address] Glu mg/dL 315 H Hemoglobin A1c 12.6 H Calculated Osmolality 275 Lactic Acid Calcium 9.5 Corrected Calcium 9.5 Phosphorus 4.3 Magnesium 1.8 Total Bilirubin AST ALT Alkaline Phosphatase Troponin I Total Protein Albumin 4.0 D Globulin Albumin/Globulin Ratio Triglycerides 137 Cholesterol 151 LDL Cholesterol, Calc 90 HDL Cholesterol 34 L Cholesterol/HDL Ratio 4.4 Lipase Procalcitonin TSH 0.82 Ur Collection Type Urine Color Urine Clarity Urine pH Ur Specific [place] Urine Protein Urine Glucose (UA) Urine Ketones Urine Blood Urine Nitrite Urine Bilirubin Urine Urobilinogen (Auto) Ur Leukocyte Esterase Urine RBC Urine WBC Ur Squamous Epith Cells Urine Bacteria Urine Opiates Screen Urine Fentanyl Screen Ur Barbiturates Screen U Amphetamin/Meth Scrn U Benzodiazepines Scrn U Cocaine Metab Screen U Marijuana (THC) Screen Quality Measures Quality Measures stroke Suspected type of Stroke: Non Acute Last known well (date): 07/31/24 Last known well (time): 10:40 Tenecteplase given: Reason(s) Tenecteplase not given: Use of NOAC (eliquis, xarelto, or pradaxa) and Recent major surgery and/or trauma not given Rehab services: PT evaluation ordered VTE Prophylaxis: pharmaceutical Antithrombotic by day 2:: ordered Statin ordered: >75 y/o moderate or high intensity dose Anticoagulation ordered for A-fib or flutter (current or hx): ordered Assessment & Plan Assessment Current Active Medications: Generic Name Dose Route Start Last Admin Trade Name Freq PRN Reason Stop Dose Admin Acetaminophen 650 mg 07/31/24 14:44 Acetaminophen 325 Mg Tablet PO 08/30/24 14:43 Q6H PRN Fever >101.5 or pain 1-3 Hydrocodone Bitart/Acetaminophen 1 tab 07/31/24 14:44 07/31/24 16:33 Hydrocodone/Apap 5/325 Tablet PO 08/05/24 14:43 1 tab Q4HR PRN Administration PAIN SCALE 4-6 (Moderate Albuterol 2.5 mg 07/31/24 14:44 Albuterol Rt 2.5 Mg/0.5 Ml Nebu INH 08/30/24 14:43 Q2HR PRN SHORTNESS OF BREATH OR WHEEZE Aspirin 81 mg 07/31/24 15:45 08/01/24 09:54 Aspirin Ec 81 Mg Tabec PO 08/30/24 15:44 81 mg QDAY MAKEDA Administration Cyclobenzaprine HCl 10 mg 07/31/24 14:57 07/31/24 16:34 Cyclobenzaprine 5 Mg Tablet PO 08/30/24 21:59 10 mg TID PRN Administration muscle spasm Dapagliflozin 5 mg 08/01/24 09:00 08/01/24 09:53 Dapagliflozin Propanediol 5 Mg Tablet PO 08/31/24 08:59 5 mg QDAY MAKEDA Administration Dextrose 25 ml 07/31/24 19:25 Dextrose 50%-Water Inj 50 Ml Syringe IV 08/30/24 19:24 Q15MIN PRN BG 50-70 responsive npo pt Dextrose 50 ml 07/31/24 19:25 Dextrose 50%-Water Inj 50 Ml Syringe IV 08/30/24 19:24 Q15MIN PRN BG <50 OR BG <70 & pt unresponsive Gabapentin 300 mg 07/31/24 14:57 Gabapentin 300 Mg Capsule PO 08/30/24 20:59 HS PRN AGITATION Glucagon 1 mg 07/31/24 19:25 Glucagon Inj 1 Mg Vial IM Q15MIN PRN BG <70, and no IV access Heparin Sodium (Porcine) 5,000 unit 07/31/24 19:30 08/01/24 08:23 Heparin Sod Inj 5000 Unit/Ml Vial SC 08/14/24 19:29 Not Given Q12H [facility] Insulin Glargine 10 unit 08/01/24 21:00 Insulin Glargine (Lantus) 5 Unit/0.05 Ml (Per 5 Units) SC 08/31/24 20:59 HS MAKEDA Insulin Human Lispro 0 unit 08/01/24 07:30 08/01/24 08:21 Insulin Lispro (Admelog) 1 Unit/0.01 Ml Unit SC 08/31/24 07:29 1 unit AC [facility] Administration Protocol Melatonin 3 mg 07/31/24 21:00 08/01/24 00:06 Melatonin 3 Mg Tablet PO 08/30/24 20:59 3 mg HS [facility] Administration Home Medication- 1 inh 08/01/24 09:00 Please Speak With IH 08/31/24 08:59 Patient Caregiver To QDAY MAKEDA Have Rx Brought To [facility] Ondansetron HCl 4 mg 07/31/24 11:11 Ondansetron Inj 2 Mg/Ml Inj 2 Ml IV 08/30/24 11:10 Q4HR PRN NAUSEA OR VOMITING Pantoprazole Sodium 40 mg 08/01/24 09:00 08/01/24 09:52 Pantoprazole Inj 40 Mg Vial IV 08/31/24 08:59 40 mg QDAY [facility] Administration Sennosides 1 tab 07/31/24 14:44 Senna Tablet PO 08/30/24 14:43 QDAY PRN constipation Protocol Sodium Chloride 3 ml 07/31/24 14:44 Sodium Chloride Rt Radha 0.9% 3 Ml Nebu INH 08/30/24 14:43 PRN PRN SOLN Plan Assessment Miki is a 53 y/o female with PMHx of COPD (not on home oxygen), PAD s/p left BKA [2020], hyperlipidemia, CKD stage IIIb secondary to insulin-dependent diabetes mellitus type 2 and essential hypertension who is currently admitted for CVA rule out #Acute CVA, ruled out #Expressive aphasia, improving #R sided weakness DDx: TIA, acute CVA, seizures Patient did appear to have some facial droop and right upper and lower motor extremity weakness, seems to be quite extended for possible stroke as we would expect more focal symptoms Patient did appear to have some stenosis seen on CT head neck angio Patient does not have stroke history Denies having any history of atrial fibrillation Initial head CT was negative MRI shows no large vessel occlusions, however scattered pontine foci increasing on the white matter, demyelinating disease pattern Pt is improving at this time, expressive aphasia has improved, weakness has improved Carotid Duplex shows 20-40% stenosis in the right ICA, 40-60% stenosis in the left ICA, may need vascular workup outpatient A1c 12.3, LDL 90, total cholesterol 151, TSH 0.82 Plan: ? Neuro consulted, appreciate recs ? Follow-up echo ? Allow for permissive hypertension for 24 hours ? Neurochecks every 4 hours ? Seizure precautions ? Bedrest ? Continue with ASA 81 milligrams and Lipitor 40 mg ? Follow-up with PT recommendations #History of COPD Not on home oxygen Relatively wheelchair-bound, uses prosthetic sometimes Plan: ? Resume home Trelegy ? Albuterol nebulizer as needed #History of PAD status post left BKA #History of hyperlipidemia #History of essential hypertension Total cholesterol 151, LDL 90 ASCVD: High intensity statin recommended Plan: ? Allowing for permissive hypertension at this time for 24 hours ? Continue with Lipitor 40 mg #History of CKD stage IIIb Creatinine 1.0 today Plan: ? Trend with CMP ? Avoid nephrotoxic agents #History of insulin-dependent diabetes mellitus type 2 A1c 12.3 Patient may benefit from long-acting insulin like degludec in outpatient Plan: ? 10 units glargine at bedtime ? SSI ? Resumed home farxiga ? Hypoglycemic protocol in place #Elevated transaminases, improving AST 101 yesterday, ALT 69 yesterday AST 52 today, ALT 51 Patient may have some hepatocellular disease, however not seen on imaging Plan: ? Trend with CMP #Health Maintenance Disposition: Telemetry DVT prophylaxis: Heparin GI prophylaxis: Protonix Diet: Dysphagia 2 CODE STATUS: Full Patient seen and care discussed with my senior resident, Dr. Turner, and my attending physician, Dr. Kalpana Abreu, PGY-1 Attending Provider Attestation/Addendum I reviewed labs, imaging, EKG, home medications and prior available records. Face to face evaluation was performed by me. I have personally examined the patient and discussed assessment and plan with the IM team. I reviewed the resident note and agree with the plan with exceptions as below. 53-year-old female with history of recent cholecystectomy 2 days prior to admission who presented with a chief complaint of right-sided weakness and expressive aphasia. She was admitted for CVA workup Right-sided weakness Expressive aphasia Symptoms of CVA Syncope Transaminitis Left below the knee amputation Symptoms significantly improved CT head is negative for acute changes. CTA showed significant ICA stenosis bilaterally Follow-up brain MRI: Showed possible demyelinating changes. Appreciate neurology recommendations Every 4 hour neurochecks Consulted neurology Started aspirin and atorvastatin Follow-up echocardiogram PT/OT/speech evaluation Trend LFTs: Downtrending
[2024-08-01 11:24] LABS: Alanine Aminotransferase 51 U/L (10-49); Albumin, Serum 3.8 gm/dL (3.5-5.0); Alkaline Phosphatase 69 U/L (46-116); Aspartate Amino Transferase 52 U/L (0-34); Bilirubin,Direct 0.1 mg/dL (0.0-0.3); Bilirubin,Total 0.3 mg/dL (0.3-1.2); Total Protein 6.2 gm/dL (5.7-8.2)
[2024-08-01 12:00] VITALS: BP 112/78; PULSE 102; PULSE 107; RESP 19; TEMP 36.1; O2SAT 95
--- NOTE | 2024-08-01 13:28 | ECHO_ITS ---
Transthoracic Echo Report Ht (in): 66 Wt (lb): 150 Exam Location: Echo Lab Status: Inpatient Rn First Assistant: Marija Santillan Indications: Procedure Performed: BP: 112 / 78 HR: 102 Technical Quality: Technically difficult study MEASUREMENTS (Male / Female) Normal Values 2D ECHO LV Diastolic Diameter PLAX 3.8 cm 4.2 - 5.9 / 3.9 - 5.3 cm LV Systolic Diameter PLAX 2.7 cm IVS Diastolic Thickness 1.1 cm 0.6 - 1.0 / 0.6 - 0.9 cm LVPW Diastolic Thickness 1.1 cm 0.6 - 1.0 / 0.6 - 0.9 cm LV Relative Wall Thickness 0.6 LVOT Diameter 1.9 cm LV Ejection Fraction MOD BP 49.1 % >= 55 % LV Cardiac Index MOD BP 3245.9 cm?/min?m? LV Ejection Fraction MOD 4C 42.8 % LV Cardiac Index MOD 4C 2635.5 cm?/min?m? LV Ejection Fraction 4C AL 44.5 % LV Cardiac Index 4C AL 2844.9 cm?/min?m? LV Ejection Fraction MOD 2C 53.8 % LV Cardiac Index MOD 2C 3622.4 cm?/min?m? LV Ejection Fraction 2C AL 50.1 % LV Cardiac Index 2C AL 3493.5 cm?/min?m? LA Volume Index 21.8 cm?/m? 16 - 28 cm?/m? M-MODE Aortic Root Diameter MM 2.7 cm AV Cusp Separation MM 2.2 cm DOPPLER AV Peak Velocity 165.0 cm/s AV Peak Gradient 10.9 mmHg AV Mean Gradient 5.0 mmHg AV Velocity Time Integral 33.6 cm LVOT Peak Velocity 103.0 cm/s LVOT Peak Gradient 4.2 mmHg LVOT Velocity Time Integral 25.7 cm LVOT Cardiac Index 4156.8 cm?/min?m? AV Area Cont Eq vti 2.2 cm? AV Area Cont Eq pk 1.8 cm? MV Area PHT 3.5 cm? Mitral E Point Velocity 47.1 cm/s Mitral A Point Velocity 80.5 cm/s Mitral E to A Ratio 0.6 LV E' Lateral Velocity 10.2 cm/s Mitral E to LV E' Lateral Ratio 4.6 LV E' Septal Velocity 5.7 cm/s Mitral E to LV E' Septal Ratio 8.3 TR Peak Velocity 264.0 cm/s TR Peak Gradient 27.9 mmHg PV Peak Velocity 102.0 cm/s PV Peak Gradient 4.2 mmHg FINDINGS Left Ventricle Normal left ventricular size. Mild LVH. Hyperdynamic LV. The ejection fraction is visually estimated at 65- 70%. Right Ventricle The right ventricle is normal in size and systolic function. Left Atrium The left atrium is normal by two-dimensional, color flow and Doppler imaging with no structural abnormalities, no thrombus formation present. Right Atrium The right atrium is normal by two-dimensional imaging, color flow and Doppler imaging with no structural abnormalities, no thrombus formation present. Atrial Septum The interatrial septum appears normal with no evidence of a shunt. Aorta The aorta is normal by two-dimensional, color flow and Doppler interrogation. Mitral Valve The mitral valve is normal by two-dimensional, color flow and Doppler interrogation. There is no significant mitral valve regurgitation, stenosis or prolapse. Aortic Valve The aortic valve is trileaflet and normal by two-dimensional, color flow and Doppler interrogation. There is no significant aortic valve regurgitation. Tricuspid Valve The tricuspid valve is normal by two-dimensional, color flow and Doppler interrogation. There is mild tricuspid valve regurgitation. Pulmonic Valve The pulmonic valve is not well visualized. There is no significant pulmonic valve regurgitation. Vessels The pulmonary artery appears normal. The inferior vena cava pulmonary and hepatic veins appear normal. Pericardium The pericardium is normal by two-dimensional imaging. There is no significant pericardial effusion. CONCLUSIONS Indication: CVA rule out Negative bubble study for any PFO or ASD. Consider RANDY if clinical index of suspicion high Normal LV size and function. Mild LVH. Hyperdynamic LV. Estimated EF 65-70%. Normal RV size and function.. Mild TR. mildly elevated RVSP at 40 mmHg. Teddy Ortiz (Electronically Signed) Final Date: 02 August 2024 05:21
[2024-08-01 16:00] VITALS: BP 138/83; PULSE 110; PULSE 93; RESP 14; TEMP 37; O2SAT 96
--- NOTE | 2024-08-01 16:16 | PC.PT ---
PT eval only. Patient is at her PLOF and is xI with bed mobility, transfers, and ambulation using the FWW hopping. Patient is safe to stand and transfer to the commode with 1 staff assistance. RN notified.
--- NOTE | 2024-08-01 17:15 | RESP.EEG ---
EEG completed and ready to be read.
[2024-08-01 20:00] VITALS: BP 117/72; PULSE 102; PULSE 113; RESP 16; TEMP 36.4; O2SAT 94
[2024-08-01] MEDS: ATORVASTATIN CALCIUM 20 MG TABLET 40 MG PO (20:29)
--- NOTE | 2024-08-01 20:52 | PC.NURSE ---
DR. RAMIREZ MADE AWARE OF TRIGEMINAL PVC'S AND EPISODES OF COUPLET PVC'S. FSBS 308. STATES HE WILL COME UP TO FLOOR AND WILL PLACE SSI FOR HS WELL. OK TO KEEP LANTUS AT 10 UNITS FOR TONIGHT. MADE AWARE THAT PT TAKES LANTUS 18 UNITS AT HOME.
[2024-08-01] MEDS: INSULIN GLARGINE (Lantus) 5 UNIT/0.05 ML (PER 5 UNITS) 10 UNIT SC (22:15)
[2024-08-01] MEDS: INSULIN LISPRO (AdmeLOG) 1 UNIT/0.01 ML UNIT 4 UNIT SC (22:15)
--- NOTE | 2024-08-01 22:18 | PD.NEUROPROG ---
Documentation for date of: 08/01/24 Exam - Neurology Vital Signs Temp Pulse Resp BP Pulse Ox O2 Del Method O2 Flow Rate 97.6 F 102 H 16 117/72 94 L Room Air 2 08/01/24 20:00 08/01/24 20:00 08/01/24 20:00 08/01/24 20:00 08/01/24 20:00 08/01/24 20:00 07/31/24 11:40 Objective Labs 08/01/24 04:18 08/01/24 04:18 Labs: Laboratory Results - last 24 hr 08/01/24 08/01/24 04:18 04:18 WBC 7.4 RBC 3.47 L Hgb 10.2 L Hct 30.8 L MCV 89 MCH 29.4 MCHC 33.1 RDW Std Deviation 44.2 Plt Count 443 H D Neut % (Auto) 61 Lymph % (Auto) 24 [place] % (Auto) 12 Eos % (Auto) 2 Baso % (Auto) 1 Neut # (Auto) 4.5 Lymph # (Auto) 1.8 [place] # (Auto) 0.9 H Eos # (Auto) 0.1 Baso # (Auto) 0.1 Immature Gran # (Auto) 0.07 H Absolute Nucleated RBC 0.00 Immature Gran % 1 H Nucleated RBC % 0 Sodium 136 Potassium 3.5 D Chloride 100 Carbon Dioxide 23.0 Anion Gap 13 BUN 13 Creatinine 1.0 Estim Creat Clear Calc 59.5 L eGFR > 60 BUN/Creatinine Ratio 13 Glucose [address] Glu mg/dL 315 H Hemoglobin A1c 12.6 H Calculated Osmolality 275 Calcium 9.5 Corrected Calcium 9.5 Phosphorus 4.3 Magnesium 1.8 Total Bilirubin 0.3 Direct Bilirubin 0.1 AST 52 H ALT 51 H Alkaline Phosphatase 69 Total Protein 6.2 Albumin 4.0 D 3.8 Triglycerides 137 Cholesterol 151 LDL Cholesterol, Calc 90 HDL Cholesterol 34 L Cholesterol/HDL Ratio 4.4 TSH 0.82
[2024-08-02] VITALS (7 sets, daily range): BP systolic 105–129; BP diastolic 67–88; PULSE 90–108; RESP 17–95; TEMP 36.1–36.8; O2SAT 95–99
[2024-08-02 05:37] LABS: Basophils # (Auto) 0.1 Thou/mm3 (0.0-0.2); Basophils % (Auto) 1 % (0-2.5); Eosinophils # (Auto) 0.3 Thou/mm3 (0.0-0.5); Eosinophils % (Auto) 4 % (0-10); Hematocrit 32.5 % (36.0-46.0); Hemoglobin 10.3 g/dL (12.0-16.0); Immature Granulocytes % (Auto) 1 % (0-0); Immature Granulocytes Auto 0.04 Thou/mm3 (0.00-0.00); Lymphocytes # (Auto) 1.5 Thou/mm3 (1.0-4.8); Lymphocytes % (Auto) 20 % (10-50); Mean Corpuscular HGB Conc 31.7 g/dl (31.0-37.0); Mean Corpuscular Hemoglobin 28.5 pg (25.0-35.0); Mean Corpuscular Volume 90 fL (80-100); Monocytes # (Auto) 0.8 Thou/mm3 (0.0-0.8); Monocytes % (Auto) 11 % (0-12); Neutrophils # (Auto) 4.7 Thou/mm3 (1.8-7.7); Neutrophils % (Auto) 64 % (37-80); Nucleated Red Blood Cell % 0 /100 WBC (0); Platelet Count 585 Thou/mm3 (140-440); Red Blood Count 3.62 Miln/mm3 (4.00-5.20); White Blood Count 7.3 Thou/mm3 (3.6-11.0)
[2024-08-02 06:25] LABS: Albumin, Serum 4.1 gm/dL (3.5-5.0); Anion Gap 11 (7-16); BUN/Creatinine Ratio 11 Ratio (12-20); Blood Urea Nitrogen 16 mg/dL (9-23); Calcium 9.9 mg/dL (8.3-10.6); Calcium (Corrected) 9.9 mg/dL (8.5-10.1); Carbon Dioxide 24.8 mMol/L (20.0-31.0); Chloride 101 mMol/L (98-107); Creatinine (Component) 1.4 mg/dL (0.6-1.3); Estimated Creatinine Clearance 42.5 mL/min (>60); Glucose 196 mg/dL (74-106); Magnesium 1.9 mg/dL (1.6-2.6); Osmolality,Calculated 280 (275-295); Phosphorous 6.1 mg/dL (2.4-5.1); Potassium 4.5 mMol/L (3.4-5.1); Sodium 137 mMol/L (136-145); eGFR 44 See Note
[2024-08-02] MEDS: INSULIN LISPRO (AdmeLOG) 1 UNIT/0.01 ML UNIT SC ×2 (07:58→12:05)
[2024-08-02] MEDS: SODIUM CHLORIDE 0.9% 500 ML 500 ML 999 ML IV (08:42)
[2024-08-02] MEDS: ASPIRIN EC 81 MG TABEC PO (08:43)
[2024-08-02] MEDS: PANTOPRAZOLE INJ 40 MG VIAL IV (08:43)
[2024-08-02] MEDS: DAPAGLIFLOZIN PROPANEDIOL 5 MG TABLET PO (08:43)
[2024-08-02] MEDS: SEVELAMER CARBONATE 800 MG TABLET PO (08:43)
[2024-08-02] MEDS: HYDROcodone/APAP 5/325 TABLET 1 TAB PO (09:10)
[2024-08-02] MEDS: SODIUM CHLORIDE 0.9% 250 ML 250 ML 999 ML IV (10:28)
--- NOTE | 2024-08-02 10:52 | PD.RESDS ---
Planned Discharge Date 08/02/24 DS: Providers Provider Date of admission: 07/31/24 14:42 Primary care physician: Chino Baig MD Admitting Provider: Sergio Acuna MD Attending Provider on Admission: Sergio Acuna MD Consults: 07/31/24 11:11 Consult to Neurology / Tele-Neurology Routine Comment: Consulting Provider: [facility] 07/31/24 14:51 Consult to Neurology / Tele-Neurology Stat Comment: CVA rule out Consulting Provider: Cain Cerna 07/31/24 17:02 Referral Physical Therapy Routine Comment: Physician Instructions: 07/31/24 17:08 Referral Speech Therapy Routine Comment: 07/31/24 23:18 Referral Mario Routine Comment: Referral Physical Therapy Routine Comment: Physician Instructions: [facility] Referral - Knowledge Deficit Routine Comment: Positive screening for knowledge deficit needs. 07/31/24 23:19 Referral Respiratory Therapy Routine Comment: Attending Provider on DC: Edwin Turner MD Discharging Provider: Edwin Turner MD DS: Diagnosis Discharge Diagnosis (1) TIA (transient ischemic attack): Status: Acute Problem List Completed Was Problem List Reviewed/Reconciled?: Yes Hospital Course Hospital Course Hospital course: Hospital Course: Ms Moses is a 53 y/o female with PMHx of COPD (not on home oxygen), PAD s/p left BKA [2020], hyperlipidemia, CKD stage IIIb secondary to insulin-dependent diabetes mellitus type 2, essential hypertension and recent cholecystectomy 2 days prior to admission, presented with a chief complaint of right-sided weakness and expressive aphasia. She was admitted for CVA workup. Her main complaints were right-sided weakness, expressive aphasia, pre syncope. Lab work showed mild-moderate transaminitis, which resolved. Her symptoms significantly improved during the hospitalization. CT head is negative for acute changes. CTA showed significant ICA stenosis bilaterally. Brain MRI showed possible demyelinating changes. Appreciate neurology recommendations to started aspirin and atorvastatin. ECHO negative for bubble study. Per PT/OT/speech evaluation, patient will benefit from OP PT therapy. She likely had a TIA. Problems on this admission: - RT sided weakness and expressive aphasia 2/2 Acute TIA - History of COPD - History of PAD status post left BKA - History of hyperlipidemia - History of essential hypertension - History of CKD stage IIIb - History of insulin-dependent diabetes mellitus type 2 : A1c 12.3 - Elevated transaminases, improving Procedures: None Discharge instructions: - Follow up with your PCP after discharge - Discontinued Hydrochlorothiazide as BP is well controlled with amlodipine alone - Started Atorvastatin 80mg every night - May take Melatonin for insomnia. Recommend switching to non-benzo hypnotics or BZRAs for fdc insomnia management. - Switched insulin Glargine to insulin Degludec 15 Unites every night for optimization - Continue all other home medications - Return to ED if symptoms worsen We are grateful to be able to participate in Ms Moses' care. We wish her the best. - Edwin Turner MD Status at Discharge Cognitive/behavioral status at discharge: Stable and returned to baseline Time Spent with Patient Time attestation: Total time spent providing and/or coordinating discharge services: more than 50% Exam Vital Signs Temp Pulse Resp BP Pulse Ox O2 Del Method O2 Flow Rate 97.8 F 108 H 17 105/67 99 Room Air 2 08/02/24 08:00 08/02/24 08:00 08/02/24 08:00 08/02/24 08:00 08/02/24 08:00 08/02/24 08:00 07/31/24 11:40 Narrative Exam Constitutional Alert, oriented x3 and comfortable HEENT Vision grossly intact. Patent nares. Trachea midline. Respiratory Chest normal on inspection and clear to auscultation bilaterally. Cardiovascular S1 and S2 audible, RRR. No murmurs or carotid bruit. No gross JVD. Abdominal Soft and non tender to palpation in all quadrants. BS + Genitourinary No bladder tenderness, no flank pain. Normal to palpation. Musculoskeletal Extremities tone within normal limits. No LE edema. Neurological CN II - XII grossly intact. Extremity motor and sensation grossly intact. Skin Warm, dry and intact. No apparent lesions. Psychiatric Patient has a good affect, is cooperative. Discharge Plan Plan Patient Disposition: HOME (Self Care) Patient condition on transfer: Stable Care Plan Goals: - Follow up with your PCP after discharge - Discontinued Hydrochlorothiazide as BP is well controlled with amlodipine alone - Started Atorvastatin 80mg every night - May take Melatonin for insomnia. 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 - Switched insulin Glargine to insulin Degludec 15 Unites every night for optimization - Continue all other home medications - Return to ED if symptoms worsen Prescriptions/Referrals Prescriptions/Med Rec: New insulin degludec 100 unit/mL (3 mL) insulin pen 15 unit subcut QPM 30 Days Qty: 4.5 0RF atorvastatin 80 mg tablet 80 mg PO QPM 30 Days Qty: 30 0RF melatonin 5 mg capsule 5 mg PO QPM PRN (Reason: insomnia) 30 Days Qty: 30 0RF sertraline 25 mg tablet 25 mg PO QDAY Qty: 30 0RF Continued gabapentin 600 mg Tablet 300 mg PO QHSPRN PRN (Reason: Pain) metformin 1,000 mg Tablet 1,000 mg PO BID aspirin 81 mg Tablet,Chewable 81 mg PO DAILY (DME) FreeStyle [place] 3 Sensor Device See Rx Instructions .Route Qty: 2 3RF Rx Instructions: Apply every 14 days (DME) FreeStyle [place] 3 Success Misc See Rx Instructions .Route Qty: 1 0RF Rx Instructions: As directed (DME) pen needle, diabetic [Pen Needle] 31 gauge x 1/4 needle See Rx Instructions .Route Qty: 100 3RF Rx Instructions: As directed Ozempic 1 mg/dose (4 mg/3 mL) pen injector 1 mg subcut QWEEK Qty: 3 3RF cyclobenzaprine 10 mg tablet 10 mg PO TID PRN (Reason: muscle spasm) Qty: 30 0RF amlodipine 5 mg tablet dapagliflozin propanediol [Farxiga] 5 mg tablet Patient Comments: TAKE 1 TABLET BY MOUTH ONCE DAILY Trelegy Ellipta 100-62.5-25 mcg blister with device INHALATION Patient Comments: INHALE 1 PUFF BY MOUTH ONCE DAILY Discontinued hydrochlorothiazide 25 mg Tablet 25 mg PO QDAY omeprazole 20 mg Tablet,Delayed Release (Dr/Ec) 20 mg PO QDAY PRN (Reason: Gastric Reflux) insulin glargine [Lantus Solostar U-100 Insulin] 100 unit/mL (3 mL) insulin pen 18 unit subcut QPM Qty: 15 3RF Referrals: Chino Baig MD [Primary Care Provider] - Patient/Caregiver Discharge Instructions Discharge Activity: resume usual activities Education Materials: Diabetes: Inspecting Your Feet, Diabetes: Caring for Your Body, What Is a TIA?, Stroke Prevention Eating Healthy, Diabetes Exercise Plan, Diabetes Carbs Fats Protein Print Language: [place]ijani Stand Alone Forms: [facility]avis Award Info., Patient Portal Info Letter Discharge Order Discharge Orders: Discharge (Routine); Ordered 08/02/24 Ordered By: Edwin Turner Quality Discharge Quality Measures VTE prophylaxis Attestestation Attestation I reviewed labs, imaging, EKG, home medications and prior available records. Face to face evaluation was performed by me. I have personally examined the patient and discussed assessment and plan with the IM team. I reviewed the resident note and agree with the plan with exceptions as below. 53-year-old female with history of recent cholecystectomy 2 days prior to admission who presented with a chief complaint of right-sided weakness and expressive aphasia. She was admitted for CVA workup Right-sided weakness Expressive aphasia Symptoms of CVA Syncope Transaminitis Left below the knee amputation History of PTSD Insulin-dependent diabetes mellitus Symptoms significantly improved. Possibly due to TIA versus anxiety. She did report history of PTSD and exacerbations of anxiety that could precipitate the symptoms. Restarted Zoloft that she took in the past CT head is negative for acute changes. CTA showed significant ICA stenosis bilaterally Follow-up brain MRI: Showed possible demyelinating changes. Appreciate neurology recommendations Consulted neurology Continue aspirin and atorvastatin PT recommended outpatient PT Trend LFTs: Downtrending Resume home diabetes medications Time spent
--- NOTE | 2024-08-02 12:54 | PC.SS ---
SS follow up note; SS faxed PT referral to outpatient PT, signed by Dr. Acuna.
[2024-08-02 14:14] LABS: Albumin, Serum 4.1 gm/dL (3.5-5.0); Anion Gap 10 (7-16); BUN/Creatinine Ratio 16 Ratio (12-20); Blood Urea Nitrogen 21 mg/dL (9-23); Calcium 9.5 mg/dL (8.3-10.6); Calcium (Corrected) 9.5 mg/dL (8.5-10.1); Carbon Dioxide 25.3 mMol/L (20.0-31.0); Chloride 100 mMol/L (98-107); Creatinine (Component) 1.3 mg/dL (0.6-1.3); Estimated Creatinine Clearance 45.8 mL/min (>60); Glucose 225 mg/dL (74-106); Osmolality,Calculated 280 (275-295); Phosphorous 4.3 mg/dL (2.4-5.1); Potassium 3.8 mMol/L (3.4-5.1); Sodium 135 mMol/L (136-145); eGFR 49 See Note
== END 2024-08-02 15:00 | disposition home or self-care (01) | DRG 68 ==
LOC: SERX 14:59 → SERHOLD 22:19 → S2NX 22:31
PROVIDERS: Emergency Medicine; Student in an Organized Health Care Education/Training Program; Admitting Provider Student in an Organized Health Care Education/Training Program; PCP Family Medicine; Visit Provider Student in an Organized Health Care Education/Training Program
DX: I65.23 Occlusion and stenosis of bilateral carotid arteries (principal); G93.49 Other encephalopathy; R47.01 Aphasia; R29.810 Facial weakness; R53.1 Weakness; I12.9 Hypertensive chronic kidney disease with stage 1 through stage 4 chronic kidney disease, or unspecified chronic kidney disease; R74.01 Elevation of levels of liver transaminase levels; F43.10 Post-traumatic stress disorder, unspecified; N18.32 Chronic kidney disease, stage 3b; F41.9 Anxiety disorder, unspecified; E78.5 Hyperlipidemia, unspecified; J44.9 Chronic obstructive pulmonary disease, unspecified; E11.22 Type 2 diabetes mellitus with diabetic chronic kidney disease; F12.90 Cannabis use, unspecified, uncomplicated; Z79.4 Long term (current) use of insulin; Z99.3 Dependence on wheelchair; Z89.512 Acquired absence of left leg below knee; Z90.49 Acquired absence of other specified parts of digestive tract; Z87.891 Personal history of nicotine dependence; Z79.84 Long term (current) use of oral hypoglycemic drugs; Z88.8 Allergy status to other drugs, medicaments and biological substances; R32 Unspecified urinary incontinence; Z63.4 Disappearance and death of family member
CPT/HCPCS: 36415; 70450; 70496; 70498; 70544; 80053; 80061; 80069; 80076; 80307; 81001; 83036; 83605; 83690; 83735; 84145; 84443; 84484; 85025; 85610; 85730; 87081; 92610; 93005; 93306; 93880; 95816; 96365; 96366; 96375; 97161; 99291; A4649; J1815; J2060; J2470; J3475; J7040; J7050; J8499; Q9967; A9270